=== PATIENT | male | born 1930 | race Caucasian/White ===

== ENCOUNTER 2017-05-26 08:40 | Inpatient (IN) ==
[2017-05-20 13:34] LABS: Basophils # (Auto) 0 K/mcL (0.0-0.3); Basophils % (Auto) 0.6 % (0.0-2.0); Eosinophils # (Auto) 0 K/mcL (0.0-0.7); Eosinophils % (Auto) 1.1 % (0.0-7.0); Granulocytes % (Auto) 64.6 % (38.0-78.0); Lymphocytes # (Auto) 1.1 K/mcL (1.5-4.8); Lymphocytes % (Auto) 25.1 % (15.5-49.0); Mean Cell Volume 90.2 fL (80.0-100.0); Mean Corpuscular HGB Conc 33.9 g/dL (31.0-36.0); Mean Corpuscular Hemoglobin 30.6 pg (26.0-34.0); Monocytes # (Auto) 0.4 K/mcL (0.1-0.9); Monocytes % (Auto) 8.6 % (1.0-12.0); Platelet Count 171 K/mcL (140-440); RBC 4.18 M/mcL (4.50-5.90); Red Cell Distribution Width 16.2 % (11.5-14.5)
[2017-05-20 13:56] LABS: Blood Urea Nitrogen 26 mg/dl (8-23)
[2017-05-22 10:32] LABS: Appearance,Urine CLEAR; Bilirubin,Urine NEG (NEG); Color,Urine YELLOW; Glucose,Urine (UA) NEGATIVE (NEG); Leukocyte Esterase,Urine NEG /uL (NEG); Nitrate,Urine NEG (NEG); Protein,Urine NEG (NEG); Specific Gravity,Urine 1.027 (1.000-1.035); Urine Blood NEG mg/dL (<0.03); Urobilinogen,Urine NEG (NEG)
[~2017-05-26 08:40] MED LIST: ACETAMINOPHEN 500 MG TABLET PO SCH; CELECOXIB 200 MG CAPSULE PO SCH; PREGABALIN 75 MG CAPSULE PO SCH; ceFAZolin 1 GM VIAL IV SCH; oxyCODONE 10 MG TAB.ER.12H PO SCH
[2017-05-26] MEDS ORDERED: IPRATROPIUM/ALBUTEROL 3 ML AMPUL.NEB NEB ONE (12:16)
[2017-05-26] MEDS ORDERED: GLYCOPYRROLATE 0.2 MG/ML VIAL IV ONE (12:40)
[2017-05-26] MEDS ORDERED: KETAMINE 100 MG/ML ML IV ONE (12:40)
[2017-05-26] MEDS ORDERED: LIDOCAINE HCL/PF 100 MG/5 ML SYRINGE IV ONE (12:40)
[2017-05-26] MEDS ORDERED: PHENYLEPHRINE 10 MG/ML VIAL IV ONE (12:40)
[2017-05-26] MEDS ORDERED: SUCCINYLCHOLINE 20 MG/ML ML IV ONE (12:40)
[2017-05-26] MEDS ORDERED: MIDAZOLAM 2 MG/2 ML VIAL IV ONE (12:40)
[2017-05-26] MEDS ORDERED: ePHEDrine 50 MG/ML AMPUL IV ONE (12:40)
[2017-05-26] MEDS ORDERED: DEXAMETHASONE 10 MG/ML VIAL IV ONE (12:40)
[2017-05-26] MEDS ORDERED: ONDANSETRON 4 MG/2 ML VIAL IV ONE (12:40)
[2017-05-26] MEDS ORDERED: fentaNYL 100 MCG/2 ML VIAL IV ONE (12:40)
[2017-05-26] MEDS ORDERED: PROPOFOL 200 MG/20 ML VIAL IV ONE (12:40)
[2017-05-26] MEDS ORDERED: NALOXONE HCL 0.4 MG/ML VIAL IV PRN (13:24)
[2017-05-26] MEDS ORDERED: ePHEDrine 50 MG/ML AMPUL IV PRN (13:24)
[2017-05-26] MEDS ORDERED: FLUMAZENIL 0.1 MG/ML ML IV PRN (13:24)
[2017-05-26] MEDS ORDERED: fentaNYL 100 MCG/2 ML VIAL IV PRN (13:24)
[2017-05-26] MEDS ORDERED: diphenhydrAMINE 50 MG/ML VIAL IV PRN (13:24)
[2017-05-26] MEDS ORDERED: ATROPINE SULFATE 0.4 MG/ML VIAL IV PRN (13:24)
[2017-05-26] MEDS ORDERED: METOPROLOL TARTRATE 5 MG/5 ML VIAL IV PRN (13:24)
[2017-05-26] MEDS ORDERED: PROMETHAZINE 25 MG/ML VIAL IV PRN (13:24)
[2017-05-26] MEDS ORDERED: IPRATROPIUM/ALBUTEROL 3 ML AMPUL.NEB NEB PRN (13:24)
[2017-05-26] MEDS ORDERED: BENZOCAINE/MENTHOL 1 LOZENGE PO PRN ×2 (13:24→13:39)
[2017-05-26] MEDS ORDERED: ONDANSETRON 4 MG/2 ML VIAL IV PRN ×2 (13:24→13:39)
[2017-05-26] MEDS ORDERED: METHOCARBAMOL 1,000 MG/10 ML VIAL IV PRN (13:24)
[2017-05-26] MEDS ORDERED: HYDROmorphone 2 MG/ML SYRINGE IV PRN ×2 (13:24→13:39)
[2017-05-26] MEDS ORDERED: LACTATED RINGERS 1,000 ML IV SCH (13:30)
[2017-05-26] MEDS ORDERED: MAGNESIUM HYDROXIDE 30 ML ORAL.SUSP PO PRN (13:39)
[2017-05-26] MEDS ORDERED: HYDROcodone/APAP 10/325MG TABLET PO PRN (13:39)
[2017-05-26] MEDS ORDERED: TEMAZEPAM 15 MG CAPSULE PO PRN (13:39)
[2017-05-26] MEDS ORDERED: KETOROLAC 15 MG/ML VIAL IV PRN (13:39)
[2017-05-26] MEDS ORDERED: TRANEXAMIC ACID 1,000 MG/10 ML VIAL IV ONE (13:39)
[2017-05-26] MEDS ORDERED: ACETAMINOPHEN 325 MG TABLET PO PRN (13:39)
[2017-05-26] MEDS ORDERED: BISACODYL 10 MG SUPP.RECT PR PRN (13:39)
[2017-05-26] MEDS ORDERED: POLYETHYLENE GLYCOL 3350 17 GM PACKET PO PRN (13:39)
[2017-05-26] MEDS ORDERED: FLEETS ADULT ENEMA PR PRN (13:39)
[2017-05-26] MEDS ORDERED: BUPIVACAINE 0.5% 50 ML VIAL IJ ONE (13:42)
--- NOTE | 2017-05-26 13:44 | Brief Operative Note ---
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
[2017-05-26] MEDS ORDERED: GENTAMICIN SULFATE 800 MG/20 ML VIAL IR ONE (13:47)
--- NOTE | 2017-05-26 14:43 | XRay Report ---
CLINICAL INFORMATION: Postsurgical follow-up Technique: Two view right shoulder COMPARISON: None. FINDINGS: Status post right reverse shoulder arthroplasty. Alignment is anatomic. IMPRESSION: Right reverse shoulder arthroplasty as above Interpreted and Authenticated by: Leroy Burroughs 05/26/17
[2017-05-26] MEDS: 0.45 % SODIUM CHLORIDE 1,000 ML IV SCH (15:17)
[2017-05-26] MEDS: 0.9 % SODIUM CHLORIDE 10 ML SYRINGE IV SCH ×2 (15:17→21:41)
[2017-05-26] MEDS: DOCUSATE SODIUM 100 MG CAPSULE PO SCH (20:36)
[2017-05-26] MEDS ORDERED: SENNOSIDES 1 TABLET PO SCH (21:00)
[2017-05-26] MEDS ORDERED: ASPIRIN 81 MG TAB.CHEW PO SCH (21:00)
[2017-05-26] MEDS ORDERED: SIMVASTATIN 40 MG TABLET PO SCH (21:00)
[2017-05-27] MEDS ORDERED: ceFAZolin 1 GM VIAL ONE (00:47)
[2017-05-27] MEDS: ceFAZolin 1 GM VIAL IV SCH ×2 (00:56→08:18)
[2017-05-27] MEDS: 0.45 % SODIUM CHLORIDE 1,000 ML IV SCH (01:46)
[2017-05-27] MEDS: 0.9 % SODIUM CHLORIDE 10 ML SYRINGE IV SCH (04:54)
--- NOTE | 2017-05-27 07:24 | Orthopedic Progress Note ---
Subjective Patient information: Note initiated : 05/27/17 at 7:23 am Service Date, if different from initiated Date: [] Patient: Charles Mendez 87 y/o M admitted on 05/26/17 for Right Reverse Total Shoulder Arthroplasty. Chief Complaint: [] Pt is stable this morning on post operative day 1 without any significant concerns or complaints. Patients vital signs have remained stable. Patients dressing is dry and exhibits a grossly intact neurovascular and neuromotor exam. Patients 10 point ROS is otherwise negative. Objective Vital signs: Vital Signs Temp Pulse Resp BP BP Pulse Ox 05/27/17 04:00 97.5 F 67 22 114/64 91 05/27/17 00:00 97.4 F 66 22 108/69 92 05/26/17 20:35 94 05/26/17 20:00 96.5 F L 70 24 H 120/64 92 05/26/17 16:00 22 118/64 92 05/26/17 15:45 22 106/63 92 05/26/17 15:30 22 112/71 92 05/26/17 15:15 22 136/73 92 05/26/17 15:00 98.2 F 22 109/69 91 05/26/17 14:50 75 20 119/58 99 05/26/17 14:35 97.3 F 77 16 139/67 92 05/26/17 14:20 76 16 148/61 96 05/26/17 14:09 97.3 F 80 16 152/88 99 05/26/17 09:10 97.9 F 20 129/65 94 Intake and Output 05/26/17 05/27/17 05/27/17 21:59 05:59 13:59 Intake Total 1640 / 1640 1150 / 1150 Output Total 100 / 100 830 / 830 Balance 1540 / 1540 320 / 320 Intake: IV 1200 / 1200 1000 / 1000 Sodium Chloride 0.45% 1, 1000 / 1000 000 ml @ 100 mls/hr IV . Q10H [facility] Rx#:[id number] Oral 440 / 440 150 / 150 Output: Void Amount 830 / 830 Straight 450 / 450 Estimated Blood Loss 100 / 100 Other: Meal [place] Percent of Meal Consumed 100% Feeding Ability Independent Weight 128 lb Intake & Output: Intake & Output 05/26/17 05/27/17 05/27/17 21:59 05:59 13:59 Intake Total 1640 / 1640 1150 / 1150 Output Total 100 / 100 830 / 830 Balance 1540 / 1540 320 / 320 Weight 128 lb Intake: IV 1200 / 1200 1000 / 1000 Sodium Chloride 0.45% 1, 1000 / 1000 000 ml @ 100 mls/hr IV . Q10H [facility] Rx#:[id number] Oral 440 / 440 150 / 150 Output: Void Amount 830 / 830 Straight 450 / 450 Estimated Blood Loss 100 / 100 Other: Meal [place] Percent of Meal Consumed 100% Feeding Ability Independent Incision: Yes healing Incision clean and dry: Yes Dressing: Yes clean Weight bearing status: full Neurological exam IM: Yes motor sensory intact, Yes neurovascular intact Extremities exam IM: Yes Foot pink and warm, Yes neurovascular intact - Labs CBC & BMP: 05/20/17 11:44 05/20/17 11:44 Labs: Orthopedic Labs 05/20/17 11:44 PT 14.5 INR 1.1 APTT 31 05/20/17 11:44 Hgb 12.8 L Hct 37.7 L Assessment and Plan (1) Hx of total shoulder replacement Patient has been educated regarding wound care and dressings, follow up recommendations, and medication use. We will f/u with the patient within 2-3 weeks for wound check. Status: Acute
--- NOTE | 2017-05-27 07:28 | Discharge Summary ---
Ortho Discharge - TSA - Patient Instructions Diet: Regular Diet Activity: activity as tolerated, weight bearing as tolerated Total Shoulder Protocol: Leave immobilizer in place except for bathing and ROM. Abduction pillow. Continue to wear sling until seen by physician. [place] Pendulum : These exercises use momentum produced by your body to move your shoulder joint. Bend your knees and shift your weight to your front leg, then back, allowing your arm to swing in the same directions. Using the same technique, alternately shift your weight between your right and left legs, allowing your arm to swing from side to side. These exercises are also performed in counterclockwise and clockwise circular motions. Typically these exercises are performed several times per day, for a set number repetitions or minutes, such as 20 times in a row or 5 minutes at a time. Dressing Care: May shower in 2 days Patient Education: Hydrocodone/Acetaminophen (By mouth), Shoulder Arthroscopy ( DC) Additional Instructions: Shoulder Hemiarthroplasty Protocol: Passive range of motion. Avoid greater than 10 degrees of external rotation. May start strengthening - avoid internal rotation. Protect the subscapularis repair. 2-3 times per week for 6 weeks. - Problem Maintenance (1) Hx of total shoulder replacement Status: Acute - Follow Up Plan Follow Up Appointments: Larry Whitney MD [Physician] - Disposition: Home, Self-Care Prognosis: Good Rehab Potential: Good I certify that the patient requires SNF services: No Overall status at discharge: patient is progressing back to baseline - Orders For Discharge Prescriptions: Docusate Sodium [Colace] 100 mg PO BID #60 capsule HYDROcodone/APAP 10/325MG [[place] 10/325Mg] 1 - 2 tab PO Q4HP PRN #75 tablet PRN Reason: Pain Hydrocodone/APAP 7.5/325Mg [[place] 7.5/325Mg] 1 - 2 tab PO Q4HP PRN #60 tablet PRN Reason: Pain Additional Discharge Orders: Physical Therapy at Discharge - TSA Location: Determined By Patient Brace/Splint Location: Determined By Patient
[2017-05-27] MEDS: DOCUSATE SODIUM 100 MG CAPSULE PO SCH (09:50)
== END 2017-05-27 09:58 | disposition home or self-care (01) | DRG 483 ==
LOC: MEDSUR 08:40
PROVIDERS: ADMIT Orthopaedic Surgery; ATTEND Orthopaedic Surgery

== ENCOUNTER 2020-07-19 01:41 | Inpatient (IN) ==
[2020-07-19] MEDS ORDERED: HYDROmorphone 0.5 MG/0.5 ML SYRINGE IV PRN ×2 (02:07→03:52)
[2020-07-19] MEDS ORDERED: ONDANSETRON 4 MG/2 ML VIAL IV ONE (02:07)
[2020-07-19] MEDS ORDERED: LACTATED RINGERS 1,000 ML IV ONE (02:07)
--- NOTE | 2020-07-19 02:26 | Emergency Department Note ---
Lower Extremity Injury HPI General Chief Complaint: Extremity Injury, Lower Stated Complaint: left hip pain Time Seen by Provider: 07/19/20 02:25 Source: patient, EMS and RN notes reviewed Mode of arrival: EMS Limitations: no limitations History of Present Illness HPI Narrative: Narrative: Patient fell getting up to use the bathroom and injured his left hip at [facility]. Denies any other symptoms. He does normally ambulate with assistance. MD complaint: hip injury Injury: Left: hip Type of Injury: blunt Place: home Severity: moderate Improves with: rest Worsens with: movement Context: fall Associated symptoms: Reports unable to bear weight Other symptoms: none Related Data Home Medications Medication Instructions Recorded Confirmed aspirin [Ecotrin Low Strength] 81 mg PO Q48 05/20/17 07/19/20 budesonide-formoterol 10.2 gm IH BID 01/26/20 07/19/20 diltiazem HCl 120 mg PO DAILY 01/26/20 07/19/20 furosemide 20 mg PO DAILY 01/26/20 07/19/20 acetaminophen [Tylenol] 650 mg PO Q4H PRN 07/19/20 07/19/20 albuterol sulfate 2 puff INHALATION Q4HP PRN 07/19/20 07/19/20 ascorbate calcium (vitamin C) 500 mg PO QDAY 07/19/20 07/19/20 atorvastatin 10 mg PO QDAY 07/19/20 07/19/20 bisacodyl 10 mg [place] QDAY PRN 07/19/20 07/19/20 ferrous sulfate 325 mg PO BID 07/19/20 07/19/20 ututresvzzb-qlpbwgndh-gzufjugz 1 inh INHALATION QDAY 07/19/20 07/19/20 ipratropium bromide 2 puff INHALATION QID 07/19/20 07/19/20 magnesium hydroxide [Milk of 30 ml PO QDAY PRN 07/19/20 07/19/20 Magnesia] morphine concentrate 0.25 mg PO TIDP PRN 07/19/20 07/19/20 pantoprazole 40 mg PO DAILY 07/19/20 07/19/20 potassium chloride 10 meq PO QDAY 07/19/20 07/19/20 sodium phosphates [Fleet Enema] 118 ml [place] ONCE 07/19/20 07/19/20 spironolactone 12.5 mg PO DAILY 07/19/20 07/19/20 Allergies Allergy/AdvReac Type Severity Reaction Status Date / Time clopidogrel [From Plavix] AdvReac Mild Fainting Verified 07/19/20 01:46 meperidine AdvReac Mild Shakiness Verified 07/19/20 07:09 Review of Systems ROS ROS Narrative: Narrative: All systems ED: reviewed and negative except as stated. Constitutional: Denies fever Cardiovascular: Denies chest pain Respiratory: Denies shortness of breath and cough Gastrointestinal: Denies abdominal pain, nausea and vomiting Musculoskeletal: Reports joint pain; Denies back pain PFSH Narrative Patient History Narrative: Narrative: Medical/Surgical/Family History All Active Problems (Updated 07/19/20 @ 07:26 by Timi Dave MD) Hx of total shoulder replacement (Acute) Cervical radiculopathy (Acute) COPD (chronic obstructive pulmonary disease) (Acute) Anemia (Acute) GI bleed (Acute) Fracture of hip (Acute) Social History Smoking Status: Former smoker Exam Narrative Narrative: Narrative: General Limitations: no limitations Head Head: atraumatic, normocephalic and normal inspection Eye Eye: Present normal appearance and EOMI; Absent scleral icterus and conjunctival injection ENT ENT: Present normal exam, normal oropharynx and mucous membranes moist Neck Neck: Present normal inspection and full ROM; Absent tenderness Chest Chest: Present normal inspection and symmetric chest wall rise; Absent tenderness Respiratory Respiratory: Present normal lung sounds bilaterally; Absent respiratory distres s, rales/crackles and wheezes Cardiovascular Cardiovascular: Present regular rate, normal rhythm and normal heart sounds Adbominal Abdominal: Present soft; Absent distention and tenderness Extremities Extremities: Present normal inspection and other (Patient has a lot of tenderness about the left hip and a lot of pain with any motion of the left hip.) Neurological Neurological: Present alert Psychiatric Psychiatric: Present normal affect Skin Skin: Present warm and dry; Absent diaphoresis Course Vital Signs Vital signs: Vital Signs Temperature 98.8 F 07/19/20 01:41 Pulse Rate 65 07/19/20 01:41 Respiratory Rate 20 07/19/20 01:41 Blood Pressure 111/59 07/19/20 01:41 Pulse Oximetry (%) 95 07/19/20 01:41 Temperature 98.8 F 07/19/20 04:10 Pulse Rate 81 07/19/20 04:10 Respiratory Rate 22 07/19/20 04:10 Blood Pressure 118/67 07/19/20 04:10 Pulse Oximetry (%) 89 L 07/19/20 04:10 MDM MDM Narrative Medical decision making narrative: Narrative: I discussed the case with Dr. Novoa the orthopedist and Dr. Goldberg the hospitalist and he will be admitted to the hospitalist service. Lab Data Lab results reviewed: Yes I reviewed the patient's lab results. Result diagrams: 07/19/20 02:38 07/19/20 02:38 Labs: Lab Results 07/19/20 07/19/20 07/19/20 Range/Units 02:38 02:38 02:38 WBC 6.5 (4.50-11.00) K/mcL RBC 3.19 L (4.63-6.08) M/mcL Hgb 9.5 L (13.7-17.5) g/dL Hct 29.5 L (40.1-51.0) % MCV 92.5 (80.0-100.0) fL MCH 29.8 (26.0-34.0) pg MCHC 32.2 (31.0-36.0) g/dL RDW 17.9 H (11.5-14.5) % Plt Count 176 (140-440) K/mcL MPV 11.2 H (7.4-10.4) fL Gran % 76.8 (38.0-78.0) % Lymph % (Auto) 10.3 L (15.5-49.0) % [place] % (Auto) 12.0 (1.0-12.0) % Eos % (Auto) 0.3 (0.0-7.0) % Baso % (Auto) 0.6 (0.0-2.0) % Gran # 5.00 (1.80-8.00) K/mcL Lymph # (Auto) 0.67 L (1.50-4.80) K/mcL [place] # (Auto) 0.78 (0.10-0.90) K/mcL Eos # (Auto) 0.02 (0.00-0.70) K/mcL Baso # (Auto) 0.04 (0.00-0.30) K/mcL Sodium 136 (133-145) mmol/L Potassium 3.7 (3.3-5.1) mmol/L Chloride 97 (96-108) mmol/L Carbon Dioxide 27 (22-30) mmol/L Anion Gap 12.0 (8-16) BUN 19 (8-23) mg/dl Creatinine 1.2 (0.7-1.2) mg/dl GFR Calculation 54 Glucose 130 H (70-105) mg/dL Calcium 8.6 (8.6-10.4) mg/dl Total Bilirubin 0.4 (0.0-1.0) mg/dL AST 17 (0-37) U/l ALT 11 (0-40) U/l Alkaline Phosphatase 66 (39-117) U/L Total Protein 6.5 (5.9-8.4) gm/dL Albumin 3.4 (3.2-5.2) gm/dL Globulin 3.1 (2.2-3.7) gm/dL Albumin/Globulin Ratio 1.1 (1.0-2.3) SARS-CoV-2 (PCR) Covid-19 negative (NEGATIVE) Radiology Data Radiology results reviewed: Yes I reviewed the patient's radiology results. Radiology results narrative: X-ray shows impacted nondisplaced left femoral neck fracture Discharge Plan Patient/Caregiver Discharge Instructions Pt seen by ROOFER METAL/PA only: No Clinical Impression: Fracture of hip Patient Disposition: Xfer As Inpt ([facility]) Discharge Date/Time: 07/19/20 04:09
[2020-07-19] MEDS ORDERED: 0.9 % SODIUM CHLORIDE 250 ML IV SCH (02:30)
[2020-07-19 03:21] LABS: Basophils # (Auto) 0.04 K/mcL (0.00-0.30); Basophils % (Auto) 0.6 % (0.0-2.0); Eosinophils # (Auto) 0.02 K/mcL (0.00-0.70); Eosinophils % (Auto) 0.3 % (0.0-7.0); Granulocytes % (Auto) 76.8 % (38.0-78.0); Hematocrit 29.5 % (40.1-51.0); Hemoglobin 9.5 g/dL (13.7-17.5); Lymphocytes # (Auto) 0.67 K/mcL (1.50-4.80); Lymphocytes % (Auto) 10.3 % (15.5-49.0); Mean Cell Volume 92.5 fL (80.0-100.0); Mean Corpuscular HGB Conc 32.2 g/dL (31.0-36.0); Mean Platelet Volume 11.2 fL (7.4-10.4); Monocytes # (Auto) 0.78 K/mcL (0.10-0.90); Platelet Count 176 K/mcL (140-440); RBC 3.19 M/mcL (4.63-6.08); Red Cell Distribution Width 17.9 % (11.5-14.5); WBC 6.5 K/mcL (4.50-11.00)
--- NOTE | 2020-07-19 03:23 | XRay Report ---
CLINICAL INFORMATION: fall and pain to hip COMPARISON: 07/11/2020. FINDINGS: Minimally comminuted transcervical fracture through the left femoral neck appreciated. The femoral neck is displaced 3 to 4 mm superiorly and anteriorly with respect to the femoral head. Moderate overlying soft tissue swelling noted. IMPRESSION: Minimally displaced transcervical fracture - left hip Interpreted and Authenticated by: Leroy Smiley 07/19/20
--- NOTE | 2020-07-19 03:31 | XRay Report ---
CLINICAL INFORMATION: Pre-operative COMPARISON: None. FINDINGS: The heart is mildly enlarged. Dual-chamber pacemaker leads in satisfactory position. Mediastinum and pulmonary vessels are normal. COPD changes appreciated. There is a small patchy region of airspace disease in the right base of indeterminate chronicity. This may represent atelectasis, scarring or infiltrate. Minor atelectasis left base. IMPRESSION: Moderate COPD with small region of airspace disease in the right base of uncertain chronicity. This could represent an acute infiltrate. Consider follow-up two-view chest x-ray in one to two days, following treatment for pneumonia, prior to surgery Interpreted and Authenticated by: Leroy Smiley 07/19/20
[2020-07-19 03:43] LABS: ALT/SGPT 11 U/l (0-40); AST/SGOT 17 U/l (0-37); Albumin 3.4 gm/dL (3.2-5.2); Albumin/Globulin Ratio 1.1 (1.0-2.3); Alkaline Phosphatase 66 U/L (39-117); Bilirubin,Total 0.4 mg/dL (0.0-1.0); Blood Urea Nitrogen 19 mg/dl (8-23); Calcium 8.6 mg/dl (8.6-10.4); Carbon Dioxide 27 mmol/L (22-30); Chloride 97 mmol/L (96-108); Globulin 3.1 gm/dL (2.2-3.7); Glomerular Filtration Rate 54; Glucose 130 mg/dL (70-105)
[2020-07-19] MEDS ORDERED: ONDANSETRON 4 MG/2 ML VIAL IV PRN (03:52)
[2020-07-19] MEDS ORDERED: LACTATED RINGERS 1,000 ML IV SCH (04:00)
[2020-07-19] MEDS ORDERED: HYDROmorphone 0.5 MG/0.5 ML SYRINGE ONE (04:30)
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
--- NOTE | 2020-07-19 07:30 | History and Physical Report ---
DATE OF ADMISSION: 07/19/2020 IDENTIFICATION: An 89-year-old male. CHIEF COMPLAINT: Left hip fracture. HISTORY OF PRESENT ILLNESS: The patient resides at [facility]. He is ambulatory. He sustained a fall late last night, had immediate pain, was unable to bear weight. He was transferred to the Emergency Room here and was evaluated by Dr. Timi Dave. His radiographs have shown a left hip fracture and I was called for further evaluation and management. PAST MEDICAL HISTORY: Significant for COPD, anemia, previous history of a GI bleed, and hypertension. PAST SURGICAL HISTORY: Previous left shoulder replacement but otherwise noncontributory to this present problem. REVIEW OF SYSTEMS: Somewhat difficult as he is a poor historian but seems that he has generally been in his normal state of health with no acute changes, residing at a care center. MEDICATIONS: 1. Aspirin. 2. Lipitor. 3. Budesonide. 4. Diltiazem. 5. Lasix. 6. Ipratropium/albuterol. 7. Lisinopril. 8. Potassium. ALLERGIES: DEMEROL and PLAVIX, although it sounds like these are more of an intolerance than true allergies. PHYSICAL EXAMINATION: GENERAL: He seems to be really quite frail. He is awake and does answer questions, although seems to have a component of dementia. HEAD: Normocephalic, atraumatic. EYES: PERRLA. Conjunctivae clear. ENT: Within normal limits. NECK: Supple without pain on range of motion. HEART: Regular. LUNGS: Clear. ABDOMEN: Benign. EXTREMITIES: His left lower extremity is shortened and any motion whatsoever reproduces pain. He seems to be without gross focal neurovascular deficit. RADIOGRAPHS: Demonstrate a femoral neck fracture which is displaced. IMPRESSION AND PLAN: Left femoral neck fracture. This is probably best managed with a hemiarthroplasty. The patient just immediately seems somewhat short of breath and does seem to have some component of dementia. We will try and discuss the feasibility of proceeding with such surgery with hospitalist and will see if we can get a hold of family, and if we can clear all this up we would plan to proceed with a hemiarthroplasty on the left. GDD:[id number] Job ID: [id number] Doc ID: [id number] Elroy Novoa MD
[2020-07-19] MEDS ORDERED: IPRATROPIUM/ALBUTEROL 3 ML AMPUL.NEB NEB PRN (07:43)
[2020-07-19] MEDS ORDERED: METOPROLOL TARTRATE 5 MG/5 ML VIAL IV ONE (08:03)
[2020-07-19 08:06] LABS: INR 1.3 (0.9-1.1); Prothrombin Time 16.4 sec (11.9-14.5)
[2020-07-19] MEDS ORDERED: ACETAMINOPHEN 325 MG TABLET PO PRN (08:26)
[2020-07-19] MEDS ORDERED: POTASSIUM CHLORIDE 20 MEQ TABLET PO PRN ×2 (08:26)
[2020-07-19] MEDS ORDERED: METOPROLOL TARTRATE 5 MG/5 ML VIAL IV PRN (08:26)
[2020-07-19] MEDS ORDERED: MAGNESIUM SULFATE 2 GM/50 ML BAG IV PRN (08:26)
[2020-07-19] MEDS ORDERED: SENNOSIDES 1 TABLET PO PRN (08:26)
[2020-07-19] MEDS ORDERED: POTASSIUM CHLORIDE 40 MEQ in DEXTROSE 5% IN WATER 500 ML IV PRN (08:26)
[2020-07-19] MEDS ORDERED: POLYETHYLENE GLYCOL 3350 17 GM PACKET PO PRN (08:26)
[2020-07-19 08:59] LABS: Appearance,Urine HAZY; Bacteria,Urine 0 /hpf (0); Bilirubin,Urine NEG (NEG); Color,Urine YELLOW; Culture Indicated,Urine NO; Glucose,Urine (UA) NEGATIVE (NEG); Ketones,Urine NEG (NEG); Leukocyte Esterase,Urine NEG /uL (NEG); Mucus,Urine FEW /hpf (0); Nitrate,Urine NEG (NEG); Protein,Urine 30 mg/dL (NEG); Urine Blood NEG mg/dL (<0.03); Urine RBC < 1 /hpf (0-1); Urine Squamous Epithelial Cell 0 /hpf (0-4); Urine WBC 3 /hpf (0-4)
[2020-07-19 09:20] LABS: Lymphocytes % 13 % (15-49); Monocytes % (Manual) 11 % (1-12); Platelet Estimate NORMAL (NORMAL); RBC Morphology NORMAL (NORMAL); Segmented Neutrophils % 76 % (38-78)
[2020-07-19] MEDS: DILTIAZEM 120 MG CAP.XL.24H PO SCH (10:05)
[2020-07-19] MEDS: PANTOPRAZOLE 40 MG TABLET PO SCH (10:16)
[2020-07-19] MEDS: 0.9 % SODIUM CHLORIDE 1,000 ML IV SCH ×2 (10:19→20:41)
[2020-07-19] MEDS: FLUTICASONE UMECLIDINIUM VILANTEROL INH SCH (10:21)
[2020-07-19] MEDS: IPRATROPIUM BROMIDE INH SCH ×4 (10:21→20:33)
[2020-07-19] MEDS: DOCUSATE SODIUM 100 MG CAPSULE PO SCH ×3 (10:21→20:46)
[2020-07-19] MEDS: BUDESONIDE FORMOTEROL INH SCH ×2 (10:21→20:33)
[2020-07-19] MEDS: 0.9 % SODIUM CHLORIDE 10 ML SYRINGE IV SCH ×2 (13:52→20:41)
[2020-07-19] MEDS: GENTAMICIN SULFATE 800 MG/20 ML VIAL IR ONE ×2 (14:38→15:51)
[2020-07-19] MEDS ORDERED: PIPERACILLIN SODIUM/TAZOBACTAM 3.375 GM in DEXTROSE 5% IN WATER 50 ML IV SCH (15:00)
[2020-07-19] MEDS: PIPERACILLIN SODIUM/TAZOBACTAM 2.25 GM in DEXTROSE 5% IN WATER 50 ML IV SCH ×3 (15:43→23:56)
[2020-07-19] MEDS: IPRATROPIUM/ALBUTEROL 3 ML AMPUL.NEB NEB PRN (17:04)
[2020-07-19] MEDS: HYDROcodone/APAP 5/325MG TABLET PO PRN (20:40)
[2020-07-20] MEDS: 0.9 % SODIUM CHLORIDE 1,000 ML IV SCH (01:10)
[2020-07-20] MEDS: HYDROcodone/APAP 5/325MG TABLET PO PRN ×2 (04:31→21:09)
[2020-07-20] MEDS: 0.9 % SODIUM CHLORIDE 10 ML SYRINGE IV SCH ×3 (04:38→21:17)
[2020-07-20] MEDS: PIPERACILLIN SODIUM/TAZOBACTAM 2.25 GM in DEXTROSE 5% IN WATER 50 ML IV SCH ×3 (05:26→17:32)
[2020-07-20 06:05] LABS: Basophils # (Auto) 0.04 K/mcL (0.00-0.30); Basophils % (Auto) 0.5 % (0.0-2.0); Eosinophils # (Auto) 0.07 K/mcL (0.00-0.70); Eosinophils % (Auto) 0.8 % (0.0-7.0); Granulocytes % (Auto) 81.6 % (38.0-78.0); Hematocrit 28.6 % (40.1-51.0); Hemoglobin 8.8 g/dL (13.7-17.5); Lymphocytes # (Auto) 0.54 K/mcL (1.50-4.80); Lymphocytes % (Auto) 6.5 % (15.5-49.0); Mean Cell Volume 95.7 fL (80.0-100.0); Mean Corpuscular HGB Conc 30.8 g/dL (31.0-36.0); Mean Platelet Volume 10.8 fL (7.4-10.4); Monocytes # (Auto) 0.88 K/mcL (0.10-0.90); Monocytes % (Auto) 10.6 % (1.0-12.0); Platelet Count 153 K/mcL (140-440); RBC 2.99 M/mcL (4.63-6.08); Red Cell Distribution Width 18.3 % (11.5-14.5); WBC 8.3 K/mcL (4.50-11.00)
[2020-07-20 06:18] LABS: ALT/SGPT 10 U/l (0-40); AST/SGOT 29 U/l (0-37); Albumin 2.6 gm/dL (3.2-5.2); Albumin/Globulin Ratio 0.8 (1.0-2.3); Alkaline Phosphatase 62 U/L (39-117); Bilirubin,Direct 0.2 mg/dL (0.0-0.3); Bilirubin,Total 0.5 mg/dL (0.0-1.0); Blood Urea Nitrogen 20 mg/dl (8-23); Calcium 8.2 mg/dl (8.6-10.4); Carbon Dioxide 23 mmol/L (22-30); Chloride 98 mmol/L (96-108); Globulin 3.3 gm/dL (2.2-3.7); Glomerular Filtration Rate 67; Glucose 125 mg/dL (70-105); Lactate Dehydrogenase 329 U/L (94-250); Triglycerides 58 mg/dl (<150); Uric Acid 4.6 mg/dL (2.5-8.0)
--- NOTE | 2020-07-20 06:27 | XRay Report ---
CLINICAL INFORMATION: COPD with right basilar infiltrate COMPARISON: 07/19/2020. FINDINGS: Mild cardiomegaly is unchanged. Pacemaker leads in stable satisfactory position. Mediastinum and pulmonary vessels are normal. COPD changes noted. Moderate patchy right basilar infiltrate show slight worsening. Minor infiltrate may be developing in the left base. No effusion IMPRESSION: /Moderate right basilar infiltrate worsening. Possible small left basilar infiltrate. Underlying COPD Interpreted and Authenticated by: Leroy Smiley 07/20/20
[2020-07-20] MEDS: PANTOPRAZOLE 40 MG TABLET PO SCH ×2 (07:32→07:38)
[2020-07-20] MEDS: FUROSEMIDE 20 MG TABLET PO SCH (11:18)
[2020-07-20] MEDS: DILTIAZEM 120 MG CAP.XL.24H PO SCH (11:18)
[2020-07-20] MEDS: IPRATROPIUM BROMIDE INH SCH ×4 (11:34→21:17)
[2020-07-20] MEDS: FLUTICASONE UMECLIDINIUM VILANTEROL INH SCH (11:35)
[2020-07-20] MEDS: BUDESONIDE FORMOTEROL INH SCH ×2 (11:35→21:17)
[2020-07-20] MEDS: DOCUSATE SODIUM 100 MG CAPSULE PO SCH ×2 (11:36→21:09)
[2020-07-20] MEDS: SPIRONOLACTONE 25 MG TABLET PO SCH (11:37)
--- NOTE | 2020-07-20 13:00 | Internal Med Progress Note ---
SUBJECTIVE Subjective Patient information: Note initiated : 07/20/20 at 12:56 pm Service Date, if different from initiated Date: [] Patient: Charles Mendez a 89 y/o M admitted on 07/19/20 for Lt Hip Pain. Chief Complaint: History of present illness: Mr. Mendez is a 89 year old M Arrives from [facility] after falling landing on his left hip. Or hitting his head. Patient is a 1 person assist and to get into the bathroom when he fell. No loss of consciousness. Case discussed with Dr. Novoa orthopedic surgeon. 07/20-orthopedics discussed case with family. Multiple comorbidities/e mphysema/CAD and high risk operative mortality. Family decided against surgical intervention. Patient will be managed conservatively as per orthopedics. Continued antibiotics for treatment of pneumonia. Resume therapy/breathing treatments/nutrition support. Case management coordinate transfer to SNF Constitutional Vitals: Vital Signs Temp Pulse Resp BP Pulse Ox 99.4 F H 91 H 20 134/66 90 07/20/20 12:00 07/20/20 12:00 07/20/20 12:00 07/20/20 12:00 07/20/20 12:00 Period Temp Pulse Resp BP Sys/Delacruz Pulse Ox Last 24 Hr 98.3 F-99.9 F 89-96 18-28 91-135/50-71 90-92 Intake and Output 07/19/20 07/20/20 07/20/20 21:59 05:59 13:59 Intake Total 100 1100 Output Total 150 175 Balance -50 925 Weight 56.88 kg Alert nonlabored breathing No anxiety Left hip pain Intake & Output: Intake & Output 07/19/20 07/20/20 07/20/20 21:59 05:59 13:59 Intake Total 100 1100 Output Total 150 175 Balance -50 925 Weight 56.88 kg Intake: IV 100 1100 Sodium Chloride 0.9% 1,000 ml @ 1000 75 mls/hr IV .[id number] [facility] Rx#: [id number] Zosyn 2.25 gm In Dextrose 5% in 100 100 Water 50 ml @ 100 mls/hr IV Q6H [facility] Rx#:[id number] Oral 0 Output: Urine Catheter Amount 150 175 Other: Urine Appearance Clear Cloudy Uretheral (Leonardo) Clear Clear Urine Color Dark Yellow Light Flor Uretheral (Leonardo) Dark Yellow Dark Yellow OBJ DATA Labs CBC & Chem 7: 07/20/20 04:42 07/20/20 04:42 Labs: Abnormal Lab Results 07/20/20 07/20/20 07/19/20 04:42 04:42 08:15 RBC 2.99 L Hgb 8.8 L Hct 28.6 L MCHC 30.8 L RDW 18.3 H MPV 10.8 H Gran % 81.6 H Lymph % (Auto) 6.5 L Lymph # (Auto) 0.54 L Lymphocytes % PT INR Glucose 125 H Calcium 8.2 L Lactate Dehydrogenase 329 H Albumin 2.6 L Albumin/Globulin Ratio 0.8 L Urine Protein 30 A Urine Urobilinogen 4.0 A 07/19/20 07/19/20 07/19/20 02:38 02:38 02:38 RBC Hgb Hct MCHC RDW MPV Gran % Lymph % (Auto) Lymph # (Auto) Lymphocytes % 13 L PT 16.4 H INR 1.3 H Glucose 130 H Calcium Lactate Dehydrogenase Albumin Albumin/Globulin Ratio Urine Protein Urine Urobilinogen 07/19/20 02:38 RBC 3.19 L Hgb 9.5 L Hct 29.5 L MCHC RDW 17.9 H MPV 11.2 H Gran % Lymph % (Auto) 10.3 L Lymph # (Auto) 0.67 L Lymphocytes % PT INR Glucose Calcium Lactate Dehydrogenase Albumin Albumin/Globulin Ratio Urine Protein Urine Urobilinogen Meds: Medications Acetaminophen (Tylenol) 650 mg PO Q6HP PRN PRN Reason: PAIN/FEVER > 101 Hydrocodone Bitart/Acetaminophen ([place] 5/325mg) 1 tab PO Q4HP PRN PRN Reason: PAIN LEVEL 3-6 Last Admin: 07/20/20 04:31 Dose: 1 tab Documented by: Albuterol/Ipratropium (Duoneb) 3 ml NEB Q4HP PRN PRN Reason: Shortness Of Breath Last Admin: 07/19/20 17:04 Dose: 3 ml Documented by: Diltiazem HCl (Cardizem Sr) 120 mg PO DAILY [facility] Last Admin: 07/20/20 11:18 Dose: 120 mg Documented by: Docusate Sodium (Colace) 100 mg PO BID [facility] Last Admin: 07/20/20 11:36 Dose: Not Given Documented by: Furosemide (Lasix) 20 mg PO DAILY [facility] Last Admin: 07/20/20 11:18 Dose: 20 mg Documented by: Potassium Chloride 40 meq/ (Dextrose) 520 mls @ 130 mls/hr IV UD PRN PRN Reason: Potassium < 3 Magnesium Sulfate (Magnesium Sulfate) 2 gm in 50 mls @ 50 mls/hr IV UD PRN PRN Reason: Magnesium </= 1.6 Piperacillin Sod/Tazobactam (Sod 2.25 gm/ Dextrose) 50 mls @ 100 mls/hr IV Q6H [facility] Last Admin: 07/20/20 12:47 Dose: 100 mls/hr Documented by: Metoprolol Tartrate (Lopressor) 5 mg IV Q2HP PRN PRN Reason: Tachyarrhythmias HR>110 Morphine Sulfate (Morphine) 0 mg IV Q3HP PRN PRN Reason: Pain Last Admin: 07/19/20 16:49 Dose: 3 mg Documented by: Ondansetron HCl (Zofran) 4 mg IV Q4HP PRN PRN Reason: Nausea And Vomiting Pantoprazole Sodium (Protonix) 40 mg PO ACB [facility] Last Admin: 07/20/20 07:38 Dose: Not Given Documented by: Budesonide- Formoterol (160-4.5 Mcg/Act) Inhaler 1 dose INH BID [facility] Last Admin: 07/20/20 11:35 Dose: Not Given Documented by: Fluticasone- Umeclidinium- Vilanterol 100-62.5- 25 Mcg Inhaler 1 dose INH DAILY [facility] Last Admin: 07/20/20 11:35 Dose: Not Given Documented by: Ipratropium [place] 17 Mcg/Act Aerosol Inhaler 1 dose INH QID [facility] Last Admin: 07/20/20 11:34 Dose: Not Given Documented by: Polyethylene Glycol (Miralax) 17 gm PO DAILYP PRN PRN Reason: Constipation Potassium Chloride (Kdur) 40 meq PO UD PRN PRN Reason: Potssium is 3-3.5 Potassium Chloride (Kdur) 40 meq PO UD PRN PRN Reason: Potassium < 3 Senna (Senokot) 2 tab PO DAILYP PRN PRN Reason: Constipation Sodium Chloride (Saline Flush) 10 ml IV Q8 [facility] Last Admin: 07/20/20 04:38 Dose: 10 ml Documented by: Spironolactone (Aldactone) 12.5 mg PO DAILY [facility] Last Admin: 07/20/20 11:37 Dose: Not Given Documented by: A/P Narrative A/P Narrative: A: *Left hip Fx: Surgery deferred due to high risk operative mortality. Case discussed by orthopedic surgeon with family and will now be managed conservatively as per family decision. *Right basilar pneumonia-continue antibiotic coverage. *Dementia: At baseline *CAD/cabg: Continue home medications *Afib w/PPM: on ASA, no anticoagulation *h/o diastolic CHF: *COPD (2 L O2@home): chronic cough, has upper airway rhonchi - poor clearance of secretions *Anemia, chronic *Poor functional status/Debility/deconditioning: Essentially wheelchair-bound Plan -Hip fracture conservative management due to high risk operative candidacy -pain control -IS/Acapella, prn suctioning -Pre-existing medical condition management home medications -home IH's, prn nebs -Case management to coordinate SNF transfer -pT/OT -ppx: Heparin DNR Time Spent With Patient Time: Total time spent is greater than 50% in coordination of care (as documented) at patient's floor/unit and/or counseling patient: QUALITY Stroke Symptom Onset Unknown: No VTE Deep Vein Thrombosis/Pulmonary Embolism Present on Admission: No
[2020-07-20] MEDS: HEPARIN 5,000 UNIT/ML VIAL SQ SCH ×2 (21:10→21:15)
[2020-07-20] MEDS: IPRATROPIUM/ALBUTEROL 3 ML AMPUL.NEB NEB PRN (21:28)
[2020-07-21] MEDS: PIPERACILLIN SODIUM/TAZOBACTAM 2.25 GM in DEXTROSE 5% IN WATER 50 ML IV SCH ×2 (05:45)
[2020-07-21] MEDS: 0.9 % SODIUM CHLORIDE 10 ML SYRINGE IV SCH (05:45)
[2020-07-21] MEDS: BUDESONIDE FORMOTEROL INH SCH (07:08)
[2020-07-21] MEDS: FUROSEMIDE 20 MG TABLET PO SCH (08:42)
[2020-07-21] MEDS: DILTIAZEM 120 MG CAP.XL.24H PO SCH (08:42)
[2020-07-21] MEDS: DOCUSATE SODIUM 100 MG CAPSULE PO SCH (08:42)
[2020-07-21] MEDS: PANTOPRAZOLE 40 MG TABLET PO SCH (08:42)
[2020-07-21] MEDS: SPIRONOLACTONE 25 MG TABLET PO SCH (08:42)
[2020-07-21] MEDS: HEPARIN 5,000 UNIT/ML VIAL SQ SCH (08:43)
[2020-07-21] MEDS: FLUTICASONE UMECLIDINIUM VILANTEROL INH SCH (08:48)
[2020-07-21] MEDS: IPRATROPIUM BROMIDE INH SCH (08:49)
--- NOTE | 2020-07-21 08:57 | Orthopedic Progress Note ---
SUBJECTIVE Subjective Patient information: Note initiated : 07/21/20 at 8:54 am Service Date, if different from initiated Date: [] Patient: Charles Mendez 89 y/o M admitted on 07/19/20 for Lt Hip Pain. Chief Complaint: [] patient has no complaint of pain at present. Mentation seeps reasonably clear Constitutional Vitals: Vital Signs Temp Pulse Resp BP Pulse Ox 98.0 F 96 H 20 111/59 96 07/21/20 07:27 07/21/20 07:27 07/21/20 07:27 07/21/20 07:27 07/21/20 07:27 Period Temp Pulse Resp BP Sys/Delacruz Pulse Ox Last 24 Hr 98.0 F-100.8 F 81-121 20-26 111-145/59-73 90-96 Intake and Output 07/20/20 07/21/20 07/21/20 21:59 05:59 13:59 Intake Total 1290 150 50 Output Total 900 550 Balance 390 -400 50 Weight 125 lb 6.4 oz Intake & Output: Intake & Output 07/20/20 07/21/20 07/21/20 21:59 05:59 13:59 Intake Total 1290 150 50 Output Total 900 550 Balance 390 -400 50 Weight 125 lb 6.4 oz Intake: IV 1050 50 50 Sodium Chloride 0.9% 1,000 ml @ 1000 75 mls/hr IV .[id number] [facility] Rx#: [id number] Zosyn 2.25 gm In Dextrose 5% in 50 50 50 Water 50 ml @ 100 mls/hr IV Q6H [facility] Rx#:[id number] Oral 240 100 Output: Urine Catheter Amount 900 550 Other: Percent of Meal Consumed Refused Feeding Ability Needs Supervision Urine Appearance Cloudy Cloudy Sediment Sediment Uretheral (Leonardo) Clear Clear Urine Color Bright Yellow Dark Yellow Uretheral (Leonardo) Bright Yellow Bright Yellow Urine Odor Strong OBJ DATA Labs CBC & Chem 7: 07/20/20 04:42 07/20/20 04:42 Labs: Abnormal Lab Results 07/20/20 07/20/20 07/19/20 04:42 04:42 08:15 RBC 2.99 L Hgb 8.8 L Hct 28.6 L MCHC 30.8 L RDW 18.3 H MPV 10.8 H Gran % 81.6 H Lymph % (Auto) 6.5 L Lymph # (Auto) 0.54 L Lymphocytes % PT INR Glucose 125 H Calcium 8.2 L Lactate Dehydrogenase 329 H Albumin 2.6 L Albumin/Globulin Ratio 0.8 L Urine Protein 30 A Urine Urobilinogen 4.0 A 07/19/20 07/19/20 07/19/20 02:38 02:38 02:38 RBC Hgb Hct MCHC RDW MPV Gran % Lymph % (Auto) Lymph # (Auto) Lymphocytes % 13 L PT 16.4 H INR 1.3 H Glucose 130 H Calcium Lactate Dehydrogenase Albumin Albumin/Globulin Ratio Urine Protein Urine Urobilinogen 07/19/20 02:38 RBC 3.19 L Hgb 9.5 L Hct 29.5 L MCHC RDW 17.9 H MPV 11.2 H Gran % Lymph % (Auto) 10.3 L Lymph # (Auto) 0.67 L Lymphocytes % PT INR Glucose Calcium Lactate Dehydrogenase Albumin Albumin/Globulin Ratio Urine Protein Urine Urobilinogen Meds: Medications Acetaminophen (Tylenol) 650 mg PO Q6HP PRN PRN Reason: PAIN/FEVER > 101 Hydrocodone Bitart/Acetaminophen ([place] 5/325mg) 1 tab PO Q4HP PRN PRN Reason: PAIN LEVEL 3-6 Last Admin: 07/20/20 21:09 Dose: 1 tab Documented by: Albuterol/Ipratropium (Duoneb) 3 ml NEB Q4HP PRN PRN Reason: Shortness Of Breath Last Admin: 07/20/20 21:28 Dose: 3 ml Documented by: Diltiazem HCl (Cardizem Sr) 120 mg PO DAILY [facility] Last Admin: 07/21/20 08:42 Dose: 120 mg Documented by: Docusate Sodium (Colace) 100 mg PO BID [facility] Last Admin: 07/21/20 08:42 Dose: 100 mg Documented by: Furosemide (Lasix) 20 mg PO DAILY [facility] Last Admin: 07/21/20 08:42 Dose: 20 mg Documented by: Heparin Sodium (Porcine) (Heparin) 5,000 unit SQ Q12 [facility] Last Admin: 07/21/20 08:43 Dose: 5,000 unit Documented by: Potassium Chloride 40 meq/ (Dextrose) 520 mls @ 130 mls/hr IV UD PRN PRN Reason: Potassium < 3 Magnesium Sulfate (Magnesium Sulfate) 2 gm in 50 mls @ 50 mls/hr IV UD PRN PRN Reason: Magnesium </= 1.6 Piperacillin Sod/Tazobactam (Sod 2.25 gm/ Dextrose) 50 mls @ 100 mls/hr IV Q6H [facility] Last Infusion: 07/21/20 06:15 Dose: Infused Documented by: Metoprolol Tartrate (Lopressor) 5 mg IV Q2HP PRN PRN Reason: Tachyarrhythmias HR>110 Morphine Sulfate (Morphine) 0 mg IV Q3HP PRN PRN Reason: Pain Last Admin: 07/20/20 17:31 Dose: 4 mg Documented by: Ondansetron HCl (Zofran) 4 mg IV Q4HP PRN PRN Reason: Nausea And Vomiting Pantoprazole Sodium (Protonix) 40 mg PO ACB [facility] Last Admin: 07/21/20 08:42 Dose: 40 mg Documented by: Budesonide- Formoterol (160-4.5 Mcg/Act) Inhaler 1 dose INH BID [facility] Last Admin: 07/21/20 07:08 Dose: Not Given Documented by: Fluticasone- Umeclidinium- Vilanterol 100-62.5- 25 Mcg Inhaler 1 dose INH DAILY [facility] Last Admin: 07/21/20 08:48 Dose: Not Given Documented by: Ipratropium [place] 17 Mcg/Act Aerosol Inhaler 1 dose INH QID [facility] Last Admin: 07/21/20 08:49 Dose: Not Given Documented by: Polyethylene Glycol (Miralax) 17 gm PO DAILYP PRN PRN Reason: Constipation Potassium Chloride (Kdur) 40 meq PO UD PRN PRN Reason: Potssium is 3-3.5 Potassium Chloride (Kdur) 40 meq PO UD PRN PRN Reason: Potassium < 3 Senna (Senokot) 2 tab PO DAILYP PRN PRN Reason: Constipation Sodium Chloride (Saline Flush) 10 ml IV Q8 [facility] Last Admin: 07/21/20 05:45 Dose: 10 ml Documented by: Spironolactone (Aldactone) 12.5 mg PO DAILY [facility] Last Admin: 07/21/20 08:42 Dose: 12.5 mg Documented by: A/P Narrative A/P Narrative: Had discussion with a family contact who in turn discussed with patients daughter and son. I did express that surgery had a significant risk because of his poor respiratory condition. They request that no surgery be done. Discussed risks and limitations of both operative and nonoperative care. Family elect no surgery. Also extensive discussion with hospitalist and anesthesia Time Spent With Patient Time: Total time spent is greater than 50% in coordination of care (as documented) at patient's floor/unit and/or counseling patient:
--- NOTE | 2020-07-21 09:46 | Discharge Summary ---
Discharge Provider Provider Patient information: Note initiated : 07/21/20 at 9:37 am Service Date, if different from initiated Date: [] Patient: Chalres Mendez 89 y/o M admitted on 07/19/20 for Lt Hip Pain. Chief Complaint: [] Discharge diagnosis *Left hip Fx: Surgery deferred due to high risk operative mortality. Case discussed by orthopedic surgeon with family and it was decided the patient will be continued on conservative management until resolution of pneumonia following which will be reevaluated in a week to 10 days by orthopedics for operative candidacy. *Pain management on as needed opioids *Right basilar pneumonia-continue antibiotic coverage for additional 5 days. *Dementia: At baseline *CAD/cabg: Continue home medications *Afib w/PPM: on ASA, no anticoagulation *h/o diastolic CHF: *COPD (2 L O2@home): chronic cough, has upper airway rhonchi - poor clearance of secretions *Anemia, chronic *Poor functional status/Debility/deconditioning: Essentially wheelchair-bound, continue directed therapies Brief hospital course History of present illness: Mr. Mendez is a 89 year old M Arrives from [facility] after falling landing on his left hip. Or hitting his head. Patient is a 1 person assist and to get into the bathroom when he fell. No loss of consciousness. Case discussed with Dr. Novoa orthopedic surgeon. 07/20-orthopedics discussed case with family. Multiple comorbidities/emphysema/CAD and high risk operative mortality. Family decided against surgical intervention. Patient will be managed conservatively as per orthopedics. Continued antibiotics for treatment of pneumonia. Resume therapy /breathing treatments/nutrition support. Case management coordinate transfer to SNF 07/21 patient discharging to [facility]F on oral Levaquin for 5 days. Recommend follow-up with orthopedics in 1 weeks for reevaluation of operative candidacy following resolution of pneumonia. Continue PT OT/directed therapies and pain management. Date of admission: 07/19/20 04:09 Discharge date: 07/21/20 Primary care physician: Luis Hernandez Consults: 07/19/20 02:26 Consult to Physician [CONS] Stat Comment: Consulting Provider: Elroy Novoa Reason For Exam: Physician to Consult 07/19/20 03:36 Consult to Physician [CONS] Stat Comment: Consulting Provider: Alonso Goldberg Reason For Exam: Physician to Consult Discharge Meds Discharge Medications Home Medications aspirin [Ecotrin Low Strength] 81 mg PO Q48 05/20/17 [History Confirmed 07/19/20 Last Taken 07/04/20] budesonide-formoterol 10.2 gm IH BID 01/26/20 [History Confirmed 07/19/20 Last Taken 07/04/20] diltiazem HCl 120 mg PO 0900 01/26/20 [History Confirmed 07/19/20 Last Taken 07/18/20 08:00] furosemide 20 mg PO DAILY 01/26/20 [History Confirmed 07/19/20 Last Taken 07/03/20] Fleet Enema 118 ml NC ONCE 07/19/20 [History Confirmed 07/19/20 Last Taken Unknown] acetaminophen [Tylenol] 650 mg PO Q4H PRN 07/19/20 [History Confirmed 07/19/20 L ast Taken Unknown] albuterol sulfate 2 puff INHALATION Q4HP PRN 07/19/20 [History Confirmed 07/19/20 Last Taken Unknown] ascorbate calcium (vitamin C) 500 mg PO QDAY 07/19/20 [History Confirmed Last Taken Unknown] atorvastatin 10 mg PO QDAY 07/19/20 [History Confirmed 07/19/20 Last Taken Unknown] bisacodyl 10 mg NC QDAY PRN 07/19/20 [History Confirmed 07/19/20 Last Taken Unknown] ferrous sulfate 325 mg PO BID 07/19/20 [History Confirmed 07/19/20 Last Taken Unknown] bybhrosikyx-cgknmonyl-ambrhaib 1 inh INHALATION QDAY 07/19/20 [History Confirmed 07/19/20 Last Taken Unknown] ipratropium bromide 2 puff INHALATION QID 07/19/20 [History Confirmed 07/19/20 Last Taken Unknown] magnesium hydroxide [Milk of Magnesia] 30 ml PO QDAY PRN 07/19/20 [History Confirmed 07/19/20 Last Taken Unknown] morphine concentrate 0.25 mg PO TIDP PRN 07/19/20 [History Confirmed 07/19/20 Last Taken Unknown] pantoprazole 40 mg PO DAILY 07/19/20 [History Confirmed 07/19/20 Last Taken Unknown] potassium chloride 10 meq PO QDAY 07/19/20 [History Confirmed 07/19/20 Last Taken Unknown] spironolactone 12.5 mg PO DAILY 07/19/20 [History Confirmed 07/19/20 Last Taken Unknown] hydrocodone-acetaminophen 1 tab PO Q4HP PRN #20 tab 07/21/20 [Rx Last Taken Unknown] levofloxacin 750 mg PO DAILY #5 tab 07/21/20 [Rx Last Taken Unknown] COURSE Hospital Course Hospital course: . Discharge diagnosis: . Time Spent with Patient Time attestation: Total time spent providing and/or coordinating discharge services: EXAM Constitutional Vitals: Temp Pulse Resp BP Pulse Ox 98.0 F 96 H 20 111/59 96 07/21/20 07:27 07/21/20 07:27 07/21/20 07:27 07/21/20 07:27 07/21/20 07:27 Discharge Plan Patient/Caregiver Discharge Instructions Activity: increase activity as tolerated Diet: Regular Diet Activity Restrictions/Additional Instructions: Continue pain management/conservative management hip fracture Follow-up orthopedics in 7 to 10 days following completion of antibiotics and resolution of pneumonia Continue oral antibiotic for additional 5 days Daily therapy/nutrition support Prescriptions: New levofloxacin [levofloxacin] 750 MG tablet 750 mg PO DAILY Qty: 5 RF: 0 hydrocodone-acetaminophen 5-325 mg Tablet 1 tab PO Q4HP PRN (Reason: Pain Level 3-6) Qty: 20 RF: 0 Continued aspirin [Ecotrin Low Strength] 81 MG tablet,delayed release (DR/EC) 81 mg PO Q48 RF: 0 diltiazem HCl 120 MG capsule,extended release 24hr 120 mg PO 0900 RF: 0 furosemide 20 MG tablet 20 mg PO DAILY RF: 0 budesonide-formoterol 10.2 GM HFA aerosol inhaler 10.2 gm IH BID RF: 0 morphine concentrate 100 mg/5 mL (20 mg/mL) solution 0.25 mg PO TIDP PRN (Reason: air hunger) RF: 0 spironolactone 25 mg tablet 12.5 mg PO DAILY RF: 0 pantoprazole 40 mg tablet,delayed release (DR/EC) 40 mg PO DAILY RF: 0 ascorbate calcium (vitamin C) 500 mg Tablet 500 mg PO QDAY RF: 0 ferrous sulfate 325 mg (65 mg iron) Tablet 325 mg PO BID RF: 0 atorvastatin 10 mg Tablet 10 mg PO QDAY RF: 0 potassium chloride 10 mEq Tablet Extended Release 10 meq PO QDAY RF: 0 momxcqmuxny-obvebkhmt-psvodqxt 100-62.5-25 mcg Blister With Device 1 inh INHALATION QDAY RF: 0 acetaminophen [Tylenol] 325 mg Tablet 650 mg PO Q4H PRN (Reason: Fever Or Pain) RF: 0 magnesium hydroxide [Milk of Magnesia] 400 mg/5 mL Suspension 30 ml PO QDAY PRN (Reason: Constipation) RF: 0 bisacodyl 10 mg Suppository 10 mg NC QDAY PRN (Reason: Fever Or Pain) RF: 0 Fleet Enema 19-7 gram/118 mL Enema 118 ml NC ONCE RF: 0 albuterol sulfate 90 mcg/actuation Hfa Aerosol Inhaler 2 puff INHALATION Q4HP PRN (Reason: sob) RF: 0 ipratropium bromide 17 mcg/actuation Hfa Aerosol Inhaler 2 puff INHALATION QID RF: 0 Follow Up Plan Follow up with: Luis Hernandez MD [Primary Care Provider] - Patient Disposition: Xfer SNF Rehab Potential: Undetermined I certify that the patient requires SNF services: Yes Overall status at discharge: patient is not back to baseline Discharge Orders: Discharge Order (Routine); Ordered 07/21/20 Ordered By: Rush KNUTSON VTE Deep Vein Thrombosis/Pulmonary Embolism Present on Admission: No
== END 2020-07-21 11:10 | DRG 535 ==
LOC: ED 01:41 → MEDSUR 04:09
PROVIDERS: ADMIT Internal Medicine; ATTEND Internal Medicine

== ENCOUNTER 2020-08-07 12:01 | Inpatient (IN) ==
[~2020-08-07 12:01] MED LIST changes: +0.9 % SODIUM CHLORIDE 9 ML, KETOROLAC 30 MG, ROPIVACAINE HCL/PF 49.5 ML, EPINEPHrine 0.... IJ SCH; -ceFAZolin 1 GM VIAL IV SCH; +ceFAZolin 2 GM in DEXTROSE 5% IN WATER 50 ML IV SCH
--- NOTE | 2020-08-07 12:58 | XRay Report ---
CLINICAL INFORMATION: to clear for surgery COMPARISON: 07/20/2020 FINDINGS: Mild cardiomegaly is unchanged. Dual-chamber pacemaker leads in stable satisfactory position without wire breakage or other complication. Small nodular infiltrate has developed in the right midlung since the comparison exam over two weeks prior. There is also a small right basilar infiltrate. Small right pleural effusion noted IMPRESSION: Cluster of nodules involving the right midlung 08/07/2020since chest x-ray just two weeks prior. Given the very sudden development this is likely inflammatory - small atypical infiltrate. Small right basilar infiltrate and effusion show progression Interpreted and Authenticated by: Leroy Smiley 08/07/20
[2020-08-07 13:19] LABS: Blood Urea Nitrogen 45 mg/dl (8-23); Calcium 9.5 mg/dl (8.6-10.4); Carbon Dioxide 22 mmol/L (22-30); Chloride 99 mmol/L (96-108); Glomerular Filtration Rate 60; Glucose 143 mg/dL (70-105)
[2020-08-07 13:25] LABS: Basophils # (Auto) 0.12 K/mcL (0.00-0.30); Basophils % (Auto) 0.6 % (0.0-2.0); Eosinophils # (Auto) 0.01 K/mcL (0.00-0.70); Eosinophils % (Auto) 0 % (0.0-7.0); Granulocytes % (Auto) 91.5 % (38.0-78.0); Hematocrit 32.3 % (40.1-51.0); Hemoglobin 10.1 g/dL (13.7-17.5); Lymphocytes # (Auto) 0.67 K/mcL (1.50-4.80); Lymphocytes % (Auto) 3.1 % (15.5-49.0); Mean Cell Volume 92.8 fL (80.0-100.0); Mean Corpuscular HGB Conc 31.3 g/dL (31.0-36.0); Mean Platelet Volume 11.8 fL (7.4-10.4); Monocytes # (Auto) 1.02 K/mcL (0.10-0.90); Monocytes % (Auto) 4.8 % (1.0-12.0); Platelet Count 287 K/mcL (140-440); RBC 3.48 M/mcL (4.63-6.08); WBC 21.3 K/mcL (4.50-11.00)
[2020-08-07 13:28] LABS: INR 1.3 (0.9-1.1); Prothrombin Time 17.1 sec (11.9-14.5)
[2020-08-07] MEDS ORDERED: KETAMINE 100 MG/ML ML ONE (14:40)
[2020-08-07] MEDS ORDERED: TRANEXAMIC ACID 1,000 MG/10 ML VIAL IV ONE (14:40)
[2020-08-07] MEDS ORDERED: PHENYLEPHRINE 10 MG/ML VIAL ONE (14:40)
[2020-08-07] MEDS ORDERED: fentaNYL 100 MCG/2 ML VIAL IV ONE (14:40)
[2020-08-07] MEDS ORDERED: PROPOFOL 200 MG/20 ML VIAL IV ONE (14:40)
[2020-08-07 15:02] LABS: Appearance,Urine CLOUDY; Bacteria,Urine 0 /hpf (0); Bilirubin,Urine NEG (NEG); Color,Urine AMBER; Culture Indicated,Urine YES; Glucose,Urine (UA) NEGATIVE (NEG); Ketones,Urine 5/TR mg/dL (NEG); Leukocyte Esterase,Urine 500 /uL (NEG); Mucus,Urine MANY /hpf (0); Nitrate,Urine NEG (NEG); Protein,Urine 100 mg/dL (NEG); Specific Gravity,Urine 1.023 (1.000-1.035); Urine Blood >=1.0 mg/dL (<0.03); Urine Budding Yeast FEW /hpf (0); Urine Hyaline Cast 30 /lpf (0-2); Urine RBC > 182 /hpf (0-1); Urine Squamous Epithelial Cell 0 /hpf (0-4); Urine WBC > 182 /hpf (0-4); Urobilinogen,Urine NEG (NEG)
--- NOTE | 2020-08-07 15:35 | Discharge Plan ---
Discharge Instructions - [facility] Patient Instructions Total Hip Protocol: Follow activity instructions as provided by Physical Therapy. Discharge Plan Patient/Caregiver Discharge Instructions Activity: ambulate only with your walker, as per physical therapy and wear oxygen at all times Diet: Regular Diet Prescriptions: New hydrocodone-acetaminophen 5-325 mg Tablet 1 - 2 tab PO Q4H PRN (Reason: Pain) Qty: 30 RF: 0 aspirin [Ecotrin] 325 mg tablet,delayed release (DR/EC) 325 mg PO BID Qty: 60 RF: 0 docusate sodium 100 mg capsule 100 mg PO BID Qty: 60 RF: 0 No Action aspirin [Ecotrin Low Strength] 81 MG tablet,delayed release (DR/EC) 81 mg PO Q48 RF: 0 diltiazem HCl 120 MG capsule,extended release 24hr 120 mg PO 0900 RF: 0 furosemide 20 MG tablet 20 mg PO DAILY RF: 0 budesonide-formoterol 10.2 GM HFA aerosol inhaler 10.2 gm IH BID RF: 0 spironolactone 25 mg tablet 12.5 mg PO DAILY RF: 0 pantoprazole 40 mg tablet,delayed release (DR/EC) 40 mg PO DAILY RF: 0 ascorbate calcium (vitamin C) 500 mg Tablet 500 mg PO QDAY RF: 0 ferrous sulfate 325 mg (65 mg iron) Tablet 325 mg PO BID RF: 0 atorvastatin 10 mg Tablet 10 mg PO QDAY RF: 0 potassium chloride 10 mEq Tablet Extended Release 10 meq PO QDAY RF: 0 npvbabeygjd-yumlybzjq-trklyhef 100-62.5-25 mcg Blister With Device 1 inh INHALATION QDAY RF: 0 acetaminophen [Tylenol] 325 mg Tablet 650 mg PO Q4H PRN (Reason: Fever Or Pain) RF: 0 magnesium hydroxide [Milk of Magnesia] 400 mg/5 mL Suspension 30 ml PO QDAY PRN (Reason: Constipation) RF: 0 bisacodyl 10 mg Suppository 10 mg NV QDAY PRN (Reason: Fever Or Pain) RF: 0 Fleet Enema 19-7 gram/118 mL Enema 118 ml NV ONCE RF: 0 albuterol sulfate 90 mcg/actuation Hfa Aerosol Inhaler 2 puff INHALATION Q4HP PRN (Reason: sob) RF: 0 ipratropium bromide 17 mcg/actuation Hfa Aerosol Inhaler 2 puff INHALATION QID RF: 0 levofloxacin [levofloxacin] 750 MG tablet 750 mg PO DAILY Qty: 5 RF: 0 hydrocodone-acetaminophen 5-325 mg Tablet 1 tab PO Q4HP PRN (Reason: Pain Level 3-6) Qty: 20 RF: 0 Other Ambulatory Orders: Physical Therapy DC - [facility] (Routine) Location: None Selected Ordered By: Glen Emanuel Toilet Riser Discharge Order (ONCE) Location: None Selected Ordered By: Glen Emanuel Walker (ONCE) Location: None Selected Ordered By: Glen Emanuel Follow Up Plan Follow up with: Glen Emanuel PA-C [Physician Credit Collection Associate] - Patient Disposition: Xfer SNF Prognosis: Fair Rehab Potential: Fair I certify that the patient requires SNF services: Yes Overall status at discharge: patient is not back to baseline Discharge Orders: Discharge Order (Routine); Ordered 08/10/20 Ordered By: Glen Emanuel
[2020-08-07] MEDS ORDERED: LACTATED RINGERS 250 ML IV PRN (15:43)
[2020-08-07] MEDS ORDERED: NALOXONE HCL 0.4 MG/ML VIAL IV PRN (15:43)
[2020-08-07] MEDS ORDERED: LABETALOL 5 MG/ML ML IV PRN (15:43)
[2020-08-07] MEDS ORDERED: ACETAMINOPHEN 1,000 MG/100 ML BOTTLE IV ONE (15:43)
[2020-08-07] MEDS ORDERED: METOPROLOL TARTRATE 5 MG/5 ML VIAL IV PRN ×2 (15:43→19:29)
[2020-08-07] MEDS ORDERED: FLUMAZENIL 0.1 MG/ML ML IV PRN (15:43)
[2020-08-07] MEDS ORDERED: BENZOCAINE/MENTHOL 1 LOZENGE PO PRN (15:43)
[2020-08-07] MEDS ORDERED: METHOCARBAMOL 1,000 MG/10 ML VIAL IV PRN (15:43)
[2020-08-07] MEDS ORDERED: IPRATROPIUM/ALBUTEROL 3 ML AMPUL.NEB NEB PRN ×3 (15:43→18:35)
[2020-08-07] MEDS ORDERED: LACTATED RINGERS 1,000 ML IV SCH (15:45)
[2020-08-07] MEDS ORDERED: GENTAMICIN SULFATE 800 MG/20 ML VIAL IR ONE (15:56)
--- NOTE | 2020-08-07 15:57 | Operative Note ---
DATE OF OPERATION: 08/07/2020 PREOPERATIVE DIAGNOSIS: Left hip femoral neck fracture, displaced, chronic. POSTOPERATIVE DIAGNOSIS: Left hip femoral neck fracture, displaced, chronic. PROCEDURE: Left hip cemented hemiarthroplasty. SURGEON: Larry Whitney M.D. AUTOMOTIVE ELECTRICAL HELPER: Glen Emanuel PA-C. The PA's assistance was required for the safe and efficient completion of the entire case. This provider's expertise and technical skill were required throughout the case. The PA assisted with preoperative coordination, intraoperative retraction, wound closure, dressing and splint application, as well as postoperative documentation and care coordination. ANESTHESIA: General LMA anesthesia. COMPLICATIONS: None. ESTIMATED BLOOD LOSS: About 20 mL. IMPLANTS: A size 5 cemented stem with a standard neck length and unipolar femoral head or ball. COMPLICATIONS: None. DESCRIPTION OF PROCEDURE: Patient brought to the operating room and put to sleep with general LMA anesthesia. Once asleep, the patient had the left hip sterilely prepped and draped in the usual sterile fashion and turned into a right lateral position. A superior approach was performed to the hip. This incision extended superiorly. We released the piriformis and the capsule, dislocated the hip with the femoral head removal. Once done, we made the neck cut, anatomically in length. We then broached up to the size of 5 stem. We trialed the 5 stem. It fit very nicely and leg lengths were equal. We irrigated thoroughly and then cemented into place a size 5 stem with a 10 mm distal centralizer canal restrictor and cement. The cement was placed with antibiotics given his health condition. It was not pressurized because of his lung condition. Once dry, we reduced the hip. We irrigated thoroughly and then repaired the capsule with #1 Ethibond. We repaired the fascial layer with #1 Stratafix and closed skin with Stratafix and amor. The patient tolerated this well. There were no complications. An abduction pillow wedge was fitted. RBH:monique Job ID: [id number] Doc ID: [id number] Larry Whitney MD
--- NOTE | 2020-08-07 17:19 | XRay Report ---
CLINICAL INFORMATION: post left gerber hip arthroplasty COMPARISON: None. FINDINGS: Left hip prostheses is anatomically aligned. Right hip and SI joints show mild degeneration No osseous abnormality. Soft tissue swelling seen as expected IMPRESSION: Left hip prostheses anatomically aligned Interpreted and Authenticated by: Leroy Smiley 08/07/20
[2020-08-07] MEDS ORDERED: ONDANSETRON 4 MG/2 ML VIAL IV PRN ×2 (17:52→18:35)
[2020-08-07] MEDS ORDERED: LACTULOSE 20 GM/30 ML ORAL.SOL PO PRN ×2 (17:52→18:35)
[2020-08-07] MEDS ORDERED: morphine 2 MG/ML VIAL IV PRN ×2 (17:52→18:35)
[2020-08-07] MEDS ORDERED: PNEUMOCOCCAL 23-VAL P-SAC VAC 0.5 ML SYRINGE IM ONE (17:52)
[2020-08-07] MEDS ORDERED: PIPERACILLIN SODIUM/TAZOBACTAM 3.375 GM in DEXTROSE 5% IN WATER 50 ML IV SCH (18:00)
[2020-08-07] MEDS ORDERED: 0.9 % SODIUM CHLORIDE 1,000 ML IV SCH ×2 (18:00→18:35)
[2020-08-07] MEDS ORDERED: MAGNESIUM HYDROXIDE 30 ML ORAL.SUSP PO PRN ×2 (18:07→18:35)
[2020-08-07] MEDS ORDERED: BISACODYL 10 MG SUPP.RECT PR PRN ×2 (18:07→18:35)
[2020-08-07] MEDS ORDERED: ALBUTEROL SULFATE 200 PUFF INHALER INH PRN ×2 (18:07→18:35)
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
--- NOTE | 2020-08-07 19:43 | Event Note ---
Event Note Event Note: Advanced Care Planning Documents: Parties in Attendance: Son (POA) and daughter in law (Vangie). Decisional Capacity: No POLST form completed: Yes. I called and and explained the CPR and intubation in detail to them. Both agreed with CPR and intubation.
[2020-08-07] MEDS ORDERED: BUDESONIDE IH SCH (21:00)
[2020-08-07] MEDS ORDERED: FORMOTEROL IH SCH (21:00)
[2020-08-07] MEDS ORDERED: DOCUSATE SODIUM 100 MG CAPSULE PO SCH (21:00)
[2020-08-07] MEDS ORDERED: FERROUS SULFATE 325 MG TABLET PO SCH (21:00)
[2020-08-07] MEDS ORDERED: HEPARIN 5,000 UNIT/ML VIAL SQ SCH (21:00)
[2020-08-07] MEDS: 0.9 % SODIUM CHLORIDE 10 ML SYRINGE IV SCH (21:53)
[2020-08-07] MEDS: METOPROLOL TARTRATE 25 MG TABLET PO SCH (21:54)
[2020-08-07] MEDS: DOCUSATE SODIUM 100 MG CAPSULE PO SCH (21:54)
[2020-08-07] MEDS: FERROUS SULFATE 325 MG TABLET PO SCH (21:54)
[2020-08-07] MEDS: FORMOTEROL IH SCH (21:55)
[2020-08-07] MEDS: BUDESONIDE IH SCH (21:55)
[2020-08-07] MEDS: HEPARIN 5,000 UNIT/ML VIAL SQ SCH (21:58)
[2020-08-07] MEDS: PIPERACILLIN SODIUM/TAZOBACTAM 3.375 GM in DEXTROSE 5% IN WATER 50 ML IV SCH (21:58)
[2020-08-07] MEDS ORDERED: 0.9 % SODIUM CHLORIDE 10 ML SYRINGE IV SCH (22:00)
[2020-08-07] MEDS ORDERED: VANCOMYCIN PER PHARMACY IV ONE (22:59)
[2020-08-07] MEDS ORDERED: ASPIRIN 81 MG PO SCH (23:00)
[2020-08-07] MEDS ORDERED: ATORVASTATIN 10 MG TABLET PO SCH (23:00)
[2020-08-07] MEDS ORDERED: 0.9 % SODIUM CHLORIDE 250 ML IV ONE (23:14)
[2020-08-07] MEDS ORDERED: VANCOMYCIN 1,000 MG in 0.9 % SODIUM CHLORIDE 250 ML IV ONE (23:35)
[2020-08-07] MEDS: 0.9 % SODIUM CHLORIDE 1,000 ML IV SCH (23:44)
[2020-08-08] MEDS ORDERED: morphine 2 MG/ML VIAL IV PRN ×2 (03:07→18:02)
[2020-08-08] MEDS ORDERED: 0.9 % SODIUM CHLORIDE 250 ML IV ONE ×3 (03:08→13:45)
[2020-08-08] MEDS ORDERED: morphine 2 MG/ML VIAL ONE (03:19)
[2020-08-08] MEDS: 0.9 % SODIUM CHLORIDE 10 ML SYRINGE IV SCH ×3 (05:39→20:46)
[2020-08-08] MEDS ORDERED: VANCOMYCIN PER PHARMACY IV SCH (06:30)
[2020-08-08 06:45] LABS: Basophils # (Auto) 0.05 K/mcL (0.00-0.30); Basophils % (Auto) 0.3 % (0.0-2.0); Eosinophils # (Auto) 0.02 K/mcL (0.00-0.70); Eosinophils % (Auto) 0.1 % (0.0-7.0); Granulocytes % (Auto) 91.5 % (38.0-78.0); Hematocrit 26.8 % (40.1-51.0); Hemoglobin 8.2 g/dL (13.7-17.5); Lymphocytes # (Auto) 0.61 K/mcL (1.50-4.80); Lymphocytes % (Auto) 3.4 % (15.5-49.0); Mean Cell Volume 94.4 fL (80.0-100.0); Mean Corpuscular HGB Conc 30.6 g/dL (31.0-36.0); Mean Platelet Volume 11.5 fL (7.4-10.4); Monocytes # (Auto) 0.84 K/mcL (0.10-0.90); Monocytes % (Auto) 4.7 % (1.0-12.0); Platelet Count 199 K/mcL (140-440); RBC 2.84 M/mcL (4.63-6.08)
[2020-08-08] MEDS: PIPERACILLIN SODIUM/TAZOBACTAM 3.375 GM in DEXTROSE 5% IN WATER 50 ML IV SCH ×2 (07:00→14:07)
[2020-08-08 07:10] LABS: Chloride 103 mmol/L (96-108)
[2020-08-08 07:12] LABS: ALT/SGPT 10 U/l (0-40); AST/SGOT 27 U/l (0-37); Albumin 2.1 gm/dL (3.2-5.2); Albumin/Globulin Ratio 0.6 (1.0-2.3); Alkaline Phosphatase 91 U/L (39-117); Bilirubin,Total 0.3 mg/dL (0.0-1.0); Blood Urea Nitrogen 47 mg/dl (8-23); Carbon Dioxide 21 mmol/L (22-30); Globulin 3.6 gm/dL (2.2-3.7); Glomerular Filtration Rate 45; Glucose 87 mg/dL (70-105)
[2020-08-08] MEDS ORDERED: PANTOPRAZOLE 40 MG TABLET PO SCH ×2 (07:30→09:00)
[2020-08-08] MEDS: HEPARIN 5,000 UNIT/ML VIAL SQ SCH (08:54)
[2020-08-08] MEDS ORDERED: DILTIAZEM 120 MG CAP.XL.24H PO SCH ×2 (09:00)
[2020-08-08] MEDS ORDERED: ASPIRIN 81 MG TAB.CHEW PO SCH (09:00)
[2020-08-08] MEDS ORDERED: FUROSEMIDE 20 MG TABLET PO SCH ×2 (09:00)
[2020-08-08] MEDS ORDERED: ATORVASTATIN 40 MG TABLET PO SCH (09:00)
[2020-08-08] MEDS: FORMOTEROL IH SCH (09:00)
[2020-08-08] MEDS ORDERED: VANCOMYCIN 1,000 MG in 0.9 % SODIUM CHLORIDE 250 ML IV SCH (09:00)
[2020-08-08] MEDS ORDERED: NON FORMULARY MEDICATION 1 DOSE MISCELL (Fluticasone-Umeclidin-Vilanter [Trelegy Ellipta] INHALATION SCH (09:00)
[2020-08-08] MEDS ORDERED: MUPIROCIN OINT 2% 22GM NARES SCH (09:00)
[2020-08-08] MEDS: BUDESONIDE IH SCH (09:00)
[2020-08-08] MEDS ORDERED: SPIRONOLACTONE 25 MG TABLET PO SCH ×2 (09:00)
[2020-08-08] MEDS ORDERED: ATORVASTATIN 10 MG TABLET PO SCH ×2 (09:00)
[2020-08-08] MEDS: METOPROLOL TARTRATE 25 MG TABLET PO SCH (09:20)
[2020-08-08] MEDS: FERROUS SULFATE 325 MG TABLET PO SCH (09:56)
[2020-08-08] MEDS: DOCUSATE SODIUM 100 MG CAPSULE PO SCH (11:09)
[2020-08-08] MEDS ORDERED: 0.9 % SODIUM CHLORIDE 200 ML IV ONE (11:47)
[2020-08-08] MEDS: 0.9 % SODIUM CHLORIDE 1,000 ML IV SCH (12:13)
[2020-08-08] MEDS ORDERED: PHENYLEPHRINE 10 MG in 0.9 % SODIUM CHLORIDE 499 ML IV SCH (15:00)
[2020-08-08] MEDS ORDERED: 0.9 % SODIUM CHLORIDE 250 ML IV SCH (15:00)
[2020-08-08 15:41] LABS: Hematocrit 25.4 % (40.1-51.0); Hemoglobin 7.9 g/dL (13.7-17.5)
--- NOTE | 2020-08-08 15:49 | Internal Med Progress Note ---
SUBJECTIVE Subjective Patient information: Note initiated : 08/08/20 at 3:44 pm Service Date, if different from initiated Date: [] Patient: Charles Mendez a 89 y/o M admitted on 08/07/20 for Left Ty Hip Arthroplasty with Cemented Deonna . Chief Complaint: [] Mr. Mendez is a 89 year old M with a past medical history of CAD status post CABG, COPD, atrial fibrillation, and chronic anemia pump who underwent left hip replacement today by Dr. Whitney. After the procedure, I was asked to see the patient by Dr. Whitney. As per Dr. Whitney, she had a mechanical fall 3 weeks ago from which he got left hip fracture. He was given conservative treatment to his left hip fracture but he has a lot of pain from the fracture. So he underwent surgical treatment this afternoon. Patient has been coughing which have been worsening. Chest x-ray showed cluster of nodules in the right midlung and right basilar infiltrates. Patient is a poor historian. He denies fever, chills, headaches, chest pain, or dysuria. 08/08 Patient is confused and agitated at times. Pain seems to be controlled. His blood pressure is low, phenylephrine was started to maintain map 65. I was reported that patient had black stool x 1. Hemoglobin today 7.9. Repeat HH q8 hours MRSA screening positive-precaution, contact. Decolonization. Vancomycin was added for pneumonia. Sputum was sent to the lab Creatinine and output two 1.4 today. It was a 1.1 yesterday. Intake and output. Maintain blood pressure. IV fluid. Repeat renal function in morning Elevation of troponin: 0.072 Review of Systems All systems: reviewed and no additional remarkable complaints except as stated Constitutional Vitals: Vital Signs Temp Pulse Resp BP Pulse Ox 98.1 F 76 24 H 108/50 93 08/08/20 12:01 08/08/20 13:58 08/08/20 15:11 08/08/20 15:11 08/08/20 15:11 Period Temp Pulse Resp BP Sys/Delacruz Pulse Ox Last 24 Hr 97.3 F-98.4 F 50-102 14-26 90-153/41-78 10-100 Intake and Output 08/08/20 08/08/20 08/08/20 05:59 13:59 21:59 Intake Total 1009 1436 Output Total 59 101 Balance 950 1335 Weight 53.796 kg Patient Weight 08/09/20 05:59 Weight 53.796 kg Intake & Output: Intake & Output 08/08/20 08/08/20 08/08/20 05:59 13:59 21:59 Intake Total 1009 1436 Output Total 59 101 Balance 950 1335 Weight 53.796 kg Intake: IV 1009 1436 Sodium Chloride 0.9% 1,000 ml @ 209 936 75 mls/hr IV .[id number] [facility] Rx#: [id number] Sodium Chloride 0.9% 200 ml @ 500 200 Wide Open IV [facility] Rx#: [id number] Zosyn 3.375 gm In Dextrose 5% 50 50 in Water 50 ml @ 100 mls/hr IV Q8H [facility] Rx#:[id number] Vancomycin 1,000 mg In Sodium 250 250 Chloride 0.9% 250 ml @ 250 mls/ hr IV Q24H [facility] Rx#:[id number] Output: Urine Catheter Amount 59 101 Other: Urine Appearance Cloudy Clear Uretheral (Leonardo) Cloudy Cloudy Urine Color Dark Yellow Bright Yellow Uretheral (Leonardo) Dark Yellow Dark Yellow Stool Size Smear Stool Color Brown Stool Consistency Soft # Bowel Movements 1 # of times incontinent of 0 Bowels Additional findings Additional findings: General - No acute distress Eyes - PERRLA, EOM intact ENT no rhinorrhea, no noticeable or palpable swelling, no redness or rash around throat or on face Neck supple, no JVD, no thyromegaly Respiratory: Lungs -coures BS, no use of accessary muscles Cardiovascular - iregular irregular rhythm, no m/r/g, GI - Normal bowel sounds, no distended, soft. Extremeties - No edema, cyanosis or clubbing. Right hip pressure ulcers. Hemo/lymphatic/immune no lymphadenopathy Neurological Alert and oriented x 2, no focal neurological deficits. Psychiatry flat affect OBJ DATA Labs CBC & Chem 7: 08/08/20 14:16 08/08/20 04:51 Labs: Abnormal Lab Results 08/08/20 08/08/20 08/08/20 14:16 04:51 04:51 WBC RBC Hgb 7.9 L Hct 25.4 L MCHC RDW MPV Gran % Lymph % (Auto) Gran # Lymph # (Auto) Crane # (Auto) PT INR APTT Carbon Dioxide 21 L Anion Gap BUN 47 H Creatinine 1.4 H Glucose Calcium 8.0 L Troponin T Total Protein 5.7 L Albumin 2.1 L Albumin/Globulin Ratio 0.6 L Procalcitonin 0.29 H Urine Protein Urine Ketones Urine Occult Blood Ur Leukocyte Esterase Urine RBC Urine WBC Hyaline Casts Urine Mucus Urine Yeast (Budding) 08/08/20 08/08/20 08/07/20 04:51 02:10 18:37 WBC 18.0 H RBC 2.84 L Hgb 8.2 L Hct 26.8 L MCHC 30.6 L RDW 20.0 H MPV 11.5 H Gran % 91.5 H Lymph % (Auto) 3.4 L Gran # 16.51 H Lymph # (Auto) 0.61 L Crane # (Auto) PT INR APTT Carbon Dioxide Anion Gap BUN Creatinine Glucose Calcium Troponin T 0.07 H* Total Protein Albumin Albumin/Globulin Ratio Procalcitonin 0.30 H Urine Protein Urine Ketones Urine Occult Blood Ur Leukocyte Esterase Urine RBC Urine WBC Hyaline Casts Urine Mucus Urine Yeast (Budding) 08/07/20 08/07/20 08/07/20 18:37 13:45 12:27 WBC RBC Hgb Hct MCHC RDW MPV Gran % Lymph % (Auto) Gran # Lymph # (Auto) Crane # (Auto) PT INR APTT Carbon Dioxide Anion Gap 17.0 H BUN 45 H Creatinine Glucose 143 H Calcium Troponin T 0.07 H* Total Protein Albumin Albumin/Globulin Ratio Procalcitonin Urine Protein 100 A Urine Ketones 5/tr A Urine Occult Blood >=1.0 A Ur Leukocyte Esterase 500 A Urine RBC > 182 H Urine WBC > 182 H Hyaline Casts 30 H Urine Mucus Many A Urine Yeast (Budding) Few A 08/07/20 08/07/20 12:27 12:27 WBC 21.3 H RBC 3.48 L Hgb 10.1 L Hct 32.3 L MCHC RDW 20.0 H MPV 11.8 H Gran % 91.5 H Lymph % (Auto) 3.1 L Gran # 19.52 H Lymph # (Auto) 0.67 L Crane # (Auto) 1.02 H PT 17.1 H INR 1.3 H APTT 38 H Carbon Dioxide Anion Gap BUN Creatinine Glucose Calcium Troponin T Total Protein Albumin Albumin/Globulin Ratio Procalcitonin Urine Protein Urine Ketones Urine Occult Blood Ur Leukocyte Esterase Urine RBC Urine WBC Hyaline Casts Urine Mucus Urine Yeast (Budding) Meds: Medications Albuterol Sulfate (Ventolin) 2 puff INH Q4HP PRN PRN Reason: sob Albuterol/Ipratropium (Duoneb) 3 ml NEB Q4HRT PRN PRN Reason: Shortness Of Breath Last Admin: 08/08/20 01:59 Dose: 3 ml Documented by: Aspirin (Aspirin) 81 mg PO DAILY [facility] Last Admin: 08/08/20 09:50 Dose: 81 mg Documented by: Atorvastatin Calcium (Lipitor) 40 mg PO QDAY [facility] Last Admin: 08/08/20 08:53 Dose: 40 mg Documented by: Bisacodyl (Dulcolax) 10 mg SD QDAY PRN PRN Reason: Fever Or Pain Diltiazem HCl (Cardizem Sr) 120 mg PO 0900 [facility] Last Admin: 08/08/20 08:53 Dose: 120 mg Documented by: Docusate Sodium (Colace) 100 mg PO BID [facility] Last Admin: 08/08/20 11:09 Dose: Not Given Documented by: Ferrous Sulfate (Ferrous Sulfate) 325 mg PO BID [facility] Last Admin: 08/08/20 09:56 Dose: 325 mg Documented by: Furosemide (Lasix) 20 mg PO DAILY [facility] Last Admin: 08/08/20 08:53 Dose: 20 mg Documented by: Heparin Sodium (Porcine) (Heparin) 5,000 unit SQ Q12 [facility] Last Admin: 08/08/20 08:54 Dose: 5,000 unit Documented by: Piperacillin Sod/Tazobactam (Sod 3.375 gm/ Dextrose) 50 mls @ 100 mls/hr IV Q8H [facility]; Protocol Last Admin: 08/08/20 14:07 Dose: 100 mls/hr Documented by: Sodium Chloride (Sodium Chloride 0.9%) 1,000 mls @ 75 mls/hr IV .[id number] [facility] Last Admin: 08/08/20 12:13 Dose: 75 mls/hr Documented by: Vancomycin HCl 1,000 mg/ (Sodium Chloride) 250 mls @ 250 mls/hr IV Q24H [facility] Last Infusion: 08/08/20 10:50 Dose: Infused Documented by: Phenylephrine HCl 10 mg/ (Sodium Chloride) 500 mls @ 80.694 mls/hr IV DUR [facility]; Protocol Sodium Chloride (Sodium Chloride 0.9%) 250 mls @ 20 mls/hr IV .[id number] [facility] Lactulose (Cephulac) 10 gm PO DAILYP PRN PRN Reason: Constipation Magnesium Hydroxide (Milk Of Magnesia) 30 ml PO QDAY PRN PRN Reason: Constipation Metoprolol Tartrate (Lopressor) 12.5 mg PO BID [facility] Last Admin: 08/08/20 09:20 Dose: 12.5 mg Documented by: Morphine Sulfate (Morphine) 2 mg IV Q4HP PRN; Protocol PRN Reason: Per Pain Protocol Mupirocin (Bactroban Oint 2%) 1 dose NARES BID [facility] Last Admin: 08/08/20 09:49 Dose: 1 dose Documented by: Ondansetron HCl (Zofran) 4 mg IV Q4HP PRN; Protocol PRN Reason: Nausea And Vomiting Pantoprazole Sodium (Protonix) 40 mg PO QAMAC [facility] Last Admin: 08/08/20 09:53 Dose: 40 mg Documented by: Budesonide- Formoterol 160 Mcg-4 .5 Mcg Inhaler 1 dose INH BID [facility] Sodium Chloride (Saline Flush) 10 ml IV Q8 [facility] Last Admin: 08/08/20 05:39 Dose: Not Given Documented by: Spironolactone (Aldactone) 12.5 mg PO DAILY [facility] Last Admin: 08/08/20 09:49 Dose: 12.5 mg Documented by: Vancomycin HCl (Vancomycin Per Pharmacy) 1 [place] [facility] [place] Protocol A/P Narrative A/P Narrative: 1. Fracture of left hip, s/p Left hip cemented hemiarthroplasty by Dr. Whitney on 08/07/20. Post op management including DVT prophylaxis and pain management by surgical team 2. Acute on chronic hypoxic respiratory failure Pulse ox Oxygen therapy - BiPAP PRN 3. Pneumonia, CAP or aspiration Chest x-ray showed "Cluster of nodules involving the right midlung 08/07/2020since chest x-ray just two weeks prior. Given the very sudden development this is likely inflammatory - small atypical infiltrate. Small right basilar infiltrate and effusion show progression" Blood culture no growth Sputum culture pending MRSA screening positive Respiratory panel negative Speech pathologist consult N.p.o. Procalcitonin 0.27 Zosyn Added vanco due to positive MRSA screen 4. CAD, s/p CABG Continue aspirin and Lipitor 5. COPD Inhalers 6. Atrial fibrillation Heart rate controlled Continue diltiazem Patient have not been on anticoagulation for long time. History of GI bleeding. 7. Leukocytosis Repeat CBC in morning 8. Chronic anemia Repeat CBC in morning 9. Hematuria Repeat CBC in morning Repeat a UA in 2 to 3 days 10. Pressure ulcer, right hip x 2 and right heel x 1 Wound care 11. GI bleeding I was reported that pt had black stool x 1 Guaiac test Hb 7.9, repeat H/H Q8hrs 12. Positive for MRSA screen [place], contact Decolonization 13. Hypotension Not respond to IV resuscitation well Phenylephrine, pt has A fib with RVR to maintain MAP 65 Monitor urine output 14. GISELLE Creatinine 1.4 today. It was 1.1 yesterday 08/07 Continue IVF vasopressor to maintain MAP 65. Monitor urine output 15. Elevation of troponin 0.07 x 2 No chest pain EKG no ST elevation Could be due to demand ischemia No oral meds, pending ST screen 15. DVT prophylaxis: Heparin 16. CODE STATUS: Full. Time Spent With Patient Time: Total time spent is greater than 50% in coordination of care (as document ed) at patient's floor/unit and/or counseling patient: Time Spent With Patient Time: Total time spent is greater than 50% in coordination of care (as documented) at patient's floor/unit and/or counseling patient:
[2020-08-08] MEDS ORDERED: LORazepam 2 MG/ML VIAL IV PRN (18:02)
[2020-08-08] MEDS ORDERED: ONDANSETRON 4 MG/2 ML VIAL IV PRN ×2 (18:02→23:01)
[2020-08-08] MEDS ORDERED: SCOPOLAMINE 1 PATCH PATCH TOPICAL SCH (18:15)
--- NOTE | 2020-08-08 19:07 | Event Note ---
Event Note Event Note: Advanced Care Planning Documents: Parties in Attendance: primary RN, and I met family including son Erik (POJosiah), bonifacio noel, daughter in law, and son in law. Decisional Capacity: No POLST form completed: No. I updated and explained pt's condition and treatment options in details. All family members feel that pt should be on comfort care at this moment. They would like to stop all meds which are not related to comfort care only. They would like to start the comfort care immediately.
[2020-08-08] MEDS ORDERED: BUDESONIDE FORMOTEROL INH SCH (21:00)
[2020-08-09] MEDS: LORazepam 2 MG/ML VIAL IV PRN ×8 (00:31→21:52)
[2020-08-09] MEDS ORDERED: LORazepam 2 MG/ML VIAL ONE (00:33)
[2020-08-09] MEDS: 0.9 % SODIUM CHLORIDE 10 ML SYRINGE IV SCH ×3 (06:07→21:59)
[2020-08-09] MEDS: morphine 2 MG/ML VIAL IV PRN ×7 (07:11→21:52)
[2020-08-09] MEDS ORDERED: ASPIRIN 81 MG PO SCH ×2 (09:00)
[2020-08-09] MEDS ORDERED: LACTOPEROXI/GLUC OXID/POT THIO 1 EACH GEL..EA. TOPICAL PRN (10:27)
--- NOTE | 2020-08-09 11:37 | Internal Med Progress Note ---
SUBJECTIVE Subjective Patient information: Note initiated : 08/09/20 at 11:29 am Service Date, if different from initiated Date: [] Patient: Charles Mendez a 89 y/o M admitted on 08/07/20 for Left Ty Hip Arthroplasty with Cemented [place] . Chief Complaint: [] Mr. Mendez is a 89 year old M with a past medical history of CAD status post CABG, COPD, atrial fibrillation, and chronic anemia pump who underwent left hip replacement today by Dr. Whitney. After the procedure, I was asked to see the patient by Dr. Whitney. As per Dr. Whitney, she had a mechanical fall 3 weeks ago from which he got left hip fracture. He was given conservative treatment to his left hip fracture but he has a lot of pain from the fracture. So he underwent surgical treatment this afternoon. Patient has been coughing which have been worsening. Chest x-ray showed cluster of nodules in the right midlung and right basilar infiltrates. Patient is a poor historian. He denies fever, chills, headaches, chest pain, or dysuria. 08/08 Patient is confused and agitated at times. Pain seems to be controlled. His blood pressure is low, phenylephrine was started to maintain map 65. I was reported that patient had black stool x 1. Hemoglobin today 7.9. Repeat HH q8 hours MRSA screening positive-precaution, contact. Decolonization. Vancomycin was added for pneumonia. Sputum was sent to the lab Creatinine and output two 1.4 today. It was a 1.1 yesterday. Intake and output. Maintain blood pressure. IV fluid. Repeat renal function in morning Elevation of troponin: 0.072 08/09 Had a family conference late yesterday afternoon. Family would like to pursue comfort care only. Comfort care only started late yesterday afternoon. Continue comfort care Review of Systems All systems: reviewed and no additional remarkable complaints except as stated Constitutional Vitals: Vital Signs Temp Pulse Resp BP Pulse Ox 98.5 F 76 22 112/48 82 L 08/09/20 07:47 08/08/20 13:58 08/09/20 07:47 08/09/20 07:47 08/09/20 07:47 Period Temp Pulse Resp BP Sys/Delacruz Pulse Ox Last 24 Hr 97.3 F-99.3 F 76 15-28 75-133/33-116 82-97 Intake and Output 08/08/20 08/09/20 08/09/20 21:59 05:59 13:59 Intake Total 809 Output Total 143 122 16 Balance 666 -122 -16 Weight 53.116 kg Intake & Output: Intake & Output 08/08/20 08/09/20 08/09/20 21:59 05:59 13:59 Intake Total 809 Output Total 143 122 16 Balance 666 -122 -16 Weight 53.116 kg Intake: IV 809 Sodium Chloride 0.9% 1,000 ml @ 509 75 mls/hr IV .[id number] [facility] Rx#: [id number] Sodium Chloride 0.9% 250 ml @ 250 Wide Open IV [facility] Rx#: [id number] Zosyn 3.375 gm In Dextrose 5% 50 in Water 50 ml @ 100 mls/hr IV Q8H [facility] Rx#:[id number] Output: Urine Catheter Amount 143 122 16 Other: Urine Appearance Clear Clear Clear Uretheral (Leonardo) Cloudy Sediment Urine Color Dark Yellow Bright Yellow Dark Yellow Uretheral (Leonardo) Light Flor Urine Odor Normal Normal Stool Size Smear Stool Color Brown Black Additional findings Additional findings: General - sleeping, seem to be comfortable, no acute distress Eyes - No conjunctival injection ENT no redness or rash around throat or on face Neck no JVD, no thyromegaly Respiratory: Lungs -coures BS, no use of accessary muscles Cardiovascular - iregular irregular rhythm, no m/r/g, GI - no distended, soft. Extremeties - No edema, cyanosis or clubbing. Right hip pressure ulcers. Hemo/lymphatic/immune no lymphadenopathy Neurological sleeping Psychiatry sleeping OBJ DATA Labs CBC & Chem 7: 08/08/20 14:16 08/08/20 04:51 Labs: Abnormal Lab Results 08/08/20 08/08/20 08/08/20 14:16 04:51 04:51 WBC RBC Hgb 7.9 L Hct 25.4 L MCHC RDW MPV Gran % Lymph % (Auto) Gran # Lymph # (Auto) [place] # (Auto) PT INR APTT Carbon Dioxide 21 L Anion Gap BUN 47 H Creatinine 1.4 H Glucose Calcium 8.0 L Troponin T Total Protein 5.7 L Albumin 2.1 L Albumin/Globulin Ratio 0.6 L Procalcitonin 0.29 H Urine Protein Urine Ketones Urine Occult Blood Ur Leukocyte Esterase Urine RBC Urine WBC Hyaline Casts Urine Mucus Urine Yeast (Budding) 08/08/20 08/08/20 08/07/20 04:51 02:10 18:37 WBC 18.0 H RBC 2.84 L Hgb 8.2 L Hct 26.8 L MCHC 30.6 L RDW 20.0 H MPV 11.5 H Gran % 91.5 H Lymph % (Auto) 3.4 L Gran # 16.51 H Lymph # (Auto) 0.61 L [place] # (Auto) PT INR APTT Carbon Dioxide Anion Gap BUN Creatinine Glucose Calcium Troponin T 0.07 H* Total Protein Albumin Albumin/Globulin Ratio Procalcitonin 0.30 H Urine Protein Urine Ketones Urine Occult Blood Ur Leukocyte Esterase Urine RBC Urine WBC Hyaline Casts Urine Mucus Urine Yeast (Budding) 08/07/20 08/07/20 08/07/20 18:37 13:45 12:27 WBC RBC Hgb Hct MCHC RDW MPV Gran % Lymph % (Auto) Gran # Lymph # (Auto) [place] # (Auto) PT INR APTT Carbon Dioxide Anion Gap 17.0 H BUN 45 H Creatinine Glucose 143 H Calcium Troponin T 0.07 H* Total Protein Albumin Albumin/Globulin Ratio Procalcitonin Urine Protein 100 A Urine Ketones 5/tr A Urine Occult Blood >=1.0 A Ur Leukocyte Esterase 500 A Urine RBC > 182 H Urine WBC > 182 H Hyaline Casts 30 H Urine Mucus Many A Urine Yeast (Budding) Few A 08/07/20 08/07/20 12:27 12:27 WBC 21.3 H RBC 3.48 L Hgb 10.1 L Hct 32.3 L MCHC RDW 20.0 H MPV 11.8 H Gran % 91.5 H Lymph % (Auto) 3.1 L Gran # 19.52 H Lymph # (Auto) 0.67 L [place] # (Auto) 1.02 H PT 17.1 H INR 1.3 H APTT 38 H Carbon Dioxide Anion Gap BUN Creatinine Glucose Calcium Troponin T Total Protein Albumin Albumin/Globulin Ratio Procalcitonin Urine Protein Urine Ketones Urine Occult Blood Ur Leukocyte Esterase Urine RBC Urine WBC Hyaline Casts Urine Mucus Urine Yeast (Budding) Meds: Medications Glucose Oxid/Lactoperoxid/Muramidas (Biotene) 1 each TOPICAL PRN PRN PRN Reason: Dry Mouth Lorazepam (Ativan) 0.5 mg IV Q2-4HP PRN PRN Reason: ANXIETY/SEDATION Last Admin: 08/09/20 10:07 Dose: 0.5 mg Documented by: Morphine Sulfate (Morphine) 2 mg IV Q2HP PRN; Protocol PRN Reason: Per Pain Protocol Last Admin: 08/09/20 10:08 Dose: 2 mg Documented by: Ondansetron HCl (Zofran) 4 mg IV Q4-6HP PRN PRN Reason: Nausea And Vomiting Scopolamine (Transderm-Scop) 1 patch TOPICAL Q72H ALEIDA Sodium Chloride (Saline Flush) 10 ml IV Q8 ALEIDA Last Admin: 08/09/20 06:07 Dose: 10 ml Documented by: A/P Narrative A/P Narrative: Assessment: 1. Fracture of left hip, s/p Left hip cemented hemiarthroplasty by Dr. Whitney on 08/07/20. 2. Acute on chronic hypoxic respiratory failure 3. Pneumonia, CAP or aspiration 4. CAD, s/p CABG 5. COPD 6. Atrial fibrillation 7. Leukocytosis 8. Chronic anemia 9. Hematuria 10. Pressure ulcer, right hip x 2 and right heel x 1 11. GI bleeding 12. Positive for MRSA screen 13. Hypotension 14. GISELLE 15. Elevation of troponin Plan: Continue comfort care only. CODE STATUS: comfort care only. Time Spent With Patient Time: Total time spent is greater than 50% in coordination of care (as documented) at patient's floor/unit and/or counseling patient:
[2020-08-10] MEDS: morphine 2 MG/ML VIAL IV PRN ×4 (00:03→06:07)
[2020-08-10] MEDS: LORazepam 2 MG/ML VIAL IV PRN ×4 (00:03→06:07)
[2020-08-10] MEDS: 0.9 % SODIUM CHLORIDE 10 ML SYRINGE IV SCH (04:21)
--- NOTE | 2020-08-10 14:32 | Discharge Summary ---
Discharge Provider Provider Patient information: Note initiated : 08/10/20 at 2:28 pm Service Date, if different from initiated Date: [] Patient: Charles Mendez 89 y/o M admitted on 08/07/20 for Left Ty Hip Arthroplasty with Cemented [place] . Chief Complaint: [] Date of admission: 08/07/20 17:52 Discharge date: 08/10/20 Primary care physician: Luis Hernandez Consults: 08/07/20 17:43 Consult to Physician [CONS] Routine Comment: Consulting Provider: Valarie Jo Reason For Exam: Physician to Consult Discharge Meds Discharge Medications Home Medications aspirin [Ecotrin Low Strength] 81 mg PO Q48 05/20/17 [History Confirmed 08/07/20 Last Taken 07/04/20] budesonide-formoterol 10.2 gm IH BID 01/26/20 [History Confirmed 08/07/20 Last Taken 07/04/20] diltiazem HCl 120 mg PO 0900 01/26/20 [History Confirmed 08/07/20 Last Taken 07/18/20 08:00] furosemide 20 mg PO DAILY 01/26/20 [History Confirmed 08/07/20 Last Taken 07/03/20] Fleet Enema 118 ml GA ONCE 07/19/20 [History Confirmed 08/07/20 Last Taken U nknown] acetaminophen [Tylenol] 650 mg PO Q4H PRN 07/19/20 [History Confirmed 08/07/20 Last Taken Unknown] albuterol sulfate 2 puff INHALATION Q4HP PRN 07/19/20 [History Confirmed 08/07/20 Last Taken Unknown] ascorbate calcium (vitamin C) 500 mg PO QDAY 07/19/20 [History Confirmed 08/07/20 Last Taken Unknown] atorvastatin 10 mg PO QDAY 07/19/20 [History Confirmed 08/07/20 Last Taken Unknown] bisacodyl 10 mg GA QDAY PRN 07/19/20 [History Confirmed 08/07/20 Last Taken Unknown] ipratropium bromide 2 puff INHALATION QID 07/19/20 [History Confirmed 08/07/20 Last Taken Unknown] magnesium hydroxide [Milk of Magnesia] 30 ml PO QDAY PRN 07/19/20 [History Confirmed 08/07/20 Last Taken Unknown] pantoprazole 40 mg PO DAILY 07/19/20 [History Confirmed 08/07/20 Last Taken Unknown] potassium chloride 10 meq PO QDAY 07/19/20 [History Confirmed 08/07/20 Last Taken Unknown] spironolactone 12.5 mg PO DAILY 07/19/20 [History Confirmed 08/07/20 Last Taken Unknown] hydrocodone-acetaminophen 1 tab PO Q4HP PRN #20 tab 07/21/20 [Rx Confirmed 08/07/20 Last Taken Unknown] aspirin [Ecotrin] 325 mg PO BID #60 tab 08/07/20 [Rx Last Taken Unknown] docusate sodium 100 mg PO BID #60 cap 08/07/20 [Rx Last Taken Unknown] ferrous sulfate 325 mg PO BID 08/07/20 [History Confirmed 08/07/20 Last Taken Unknown] yehokbyqqoh-ulbtgzmsw-vrshzdhm [Trelegy Ellipta] 1 inh INHALATION DAILY 08/07/20 [History Confirmed 08/07/20 Last Taken Unknown] hydrocodone-acetaminophen 1 - 2 tab PO Q4H PRN #30 tab 08/07/20 [Rx Last Taken Unknown] morphine concentrate 5 - 10 mg PO Q3HP PRN 08/07/20 [History Confirmed 08/07/20 Last Taken Unknown] budesonide-formoterol 2 puff INHALATION BID 08/08/20 [History Confirmed 08/08/20 Last Taken Unknown] COURSE Hospital Course Hospital course: 1. Fracture of left hip, s/p Left hip cemented hemiarthroplasty by Dr. Whitney on 08/07/20. 2. Acute on chronic hypoxic respiratory failure 3. Pneumonia, CAP or aspiration 4. CAD, s/p CABG 5. COPD 6. Atrial fibrillation 7. Leukocytosis 8. Chronic anemia 9. Hematuria 10. Pressure ulcer, right hip x 2 and right heel x 1 11. GI bleeding 12. Positive for MRSA screen 13. Hypotension 14. GISELLE 15. Elevation of troponin Mr. Mendez is a 89 year old M with a past medical history of CAD status post CABG, COPD, atrial fibrillation, and chronic anemia pump who underwent left hip replacement today by Dr. Whitney. After the procedure, I was asked to see the patient by Dr. Whitney. As per Dr. Whitney, she had a mechanical fall 3 weeks ago from which he got left hip fracture. He was given conservative treatment to his left hip fracture but he has a lot of pain from the fracture. So he underwent surgical treatment this afternoon. Patient has been coughing which have been worsening. Chest x-ray showed cluster of nodules in the right midlung and right basilar infiltrates. Patient is a poor historian. He denies fever, chills, headaches, chest pain, or dysuria. 08/08 Patient is confused and agitated at times. Pain seems to be controlled. His blood pressure is low, phenylephrine was started to maintain map 65. I was reported that patient had black stool x 1. Hemoglobin today 7.9. Repeat HH q8 hours MRSA screening positive-precaution, contact. Decolonization. Vancomycin was added for pneumonia. Sputum was sent to the lab Creatinine and output two 1.4 today. It was a 1.1 yesterday. Intake and output. Maintain blood pressure. IV fluid. Repeat renal function in morning Elevation of troponin: 0.072 08/09 Had a family conference late yesterday afternoon. Family would like to pursue comfort care only. Comfort care only started late yesterday afternoon. Continue comfort care 08/10 He today. Discharge diagnosis: Acute on chronic hypoxic respiratory failure, Pneumonia Time Spent with Patient Time attestation: Total time spent providing and/or coordinating discharge services: EXAM Constitutional Vitals: Temp Pulse Resp BP Pulse Ox 97.7 F 82 36 H 95/52 66 L 08/09/20 20:00 08/09/20 20:00 08/09/20 20:00 08/09/20 20:00 08/09/20 20:00 Additional findings Additional findings: . Discharge Data Data Completed and Pending Labs on day of discharge: Preliminary micro results at discharge 08/07/20 20:40 Blood Culture - Preliminary Blood 08/07/20 18:37 Blood Culture - Preliminary Blood 08/07/20 13:45 Urine Culture - Preliminary Urine - Leonardo Coagulase negative staph Discharge Plan Patient/Caregiver Discharge Instructions Prescriptions: New hydrocodone-acetaminophen 5-325 mg Tablet 1 - 2 tab PO Q4H PRN (Reason: Pain) Qty: 30 RF: 0 aspirin [Ecotrin] 325 mg tablet,delayed release (DR/EC) 325 mg PO BID Qty: 60 RF: 0 docusate sodium 100 mg capsule 100 mg PO BID Qty: 60 RF: 0 No Action aspirin [Ecotrin Low Strength] 81 MG tablet,delayed release (DR/EC) 81 mg PO Q48 RF: 0 diltiazem HCl 120 MG capsule,extended release 24hr 120 mg PO 0900 RF: 0 furosemide 20 MG tablet 20 mg PO DAILY RF: 0 budesonide-formoterol 10.2 GM HFA aerosol inhaler 10.2 gm IH BID RF: 0 spironolactone 25 mg tablet 12.5 mg PO DAILY RF: 0 pantoprazole 40 mg tablet,delayed release (DR/EC) 40 mg PO DAILY RF: 0 ascorbate calcium (vitamin C) 500 mg Tablet 500 mg PO QDAY RF: 0 atorvastatin 10 mg Tablet 10 mg PO QDAY RF: 0 potassium chloride 10 mEq Tablet Extended Release 10 meq PO QDAY RF: 0 acetaminophen [Tylenol] 325 mg Tablet 650 mg PO Q4H PRN (Reason: Fever Or Pain) RF: 0 magnesium hydroxide [Milk of Magnesia] 400 mg/5 mL Suspension 30 ml PO QDAY PRN (Reason: Constipation) RF: 0 bisacodyl 10 mg Suppository 10 mg GA QDAY PRN (Reason: Fever Or Pain) RF: 0 Fleet Enema 19-7 gram/118 mL Enema 118 ml GA ONCE RF: 0 albuterol sulfate 90 mcg/actuation Hfa Aerosol Inhaler 2 puff INHALATION Q4HP PRN (Reason: sob) RF: 0 ipratropium bromide 17 mcg/actuation Hfa Aerosol Inhaler 2 puff INHALATION QID RF: 0 hydrocodone-acetaminophen 5-325 mg Tablet 1 tab PO Q4HP PRN (Reason: Pain Level 3-6) Qty: 20 RF: 0 ferrous sulfate 325 mg (65 mg iron) Tablet 325 mg PO BID RF: 0 Trelegy Ellipta 100-62.5-25 mcg Blister With Device 1 inh INHALATION DAILY RF: 0 morphine concentrate 100 mg/5 mL (20 mg/mL) Solution 5 - 10 mg PO Q3HP PRN (Reason: Pain) RF: 0 budesonide-formoterol 160-4.5 mcg/actuation HFA aerosol inhaler 2 puff INHALATION BID RF: 0 Other Ambulatory Orders: Physical Therapy DC - CÉSAR (Routine) Location: None Selected Ordered By: Glen Emanuel Toilet Riser Discharge Order (ONCE) Location: None Selected Ordered By: Glen Emanuel Walker (ONCE) Location: None Selected Ordered By: Glen Emanuel Follow Up Plan Follow up with: Glen Emanuel PA-C [Physician Waiter/Waitress Informal] - Patient Disposition: Prognosis: Overall status at discharge: other Discharge Date/Time: 08/10/20 07:20 Discharge Orders: Discharge Order (Routine); Ordered 08/10/20 Ordered By: Valarie Jo Discharge Comment: [facility]
[2020-08-11] MEDS ORDERED: SCOPOLAMINE 1 PATCH PATCH TOPICAL SCH (10:00)
== END 2020-08-10 07:20 | disposition expired ==
LOC: SUR 12:01 → MEDSUR 12:02 → ICU 17:30 → MEDSUR 08-09 15:05
PROVIDERS: ADMIT Orthopaedic Surgery; ATTEND Internal Medicine